=== PATIENT | female | born 1945 | race Caucasian/White ===

== ENCOUNTER 2017-09-19 15:03 | Inpatient (IN) | payer MEDICARE, BC ==
[2017-09-19] MEDS ORDERED: Ondansetron 4 MG Tab.DIS PO PRN (15:40)
[2017-09-19] MEDS ORDERED: Ondansetron 4 MG/2 ML SDV IV PRN (16:45)
[2017-09-19] MEDS: Sodium Chloride 0.9% 1,000 ML IV SCH (16:50)
[2017-09-19] MEDS: Azithromycin 500 MG in Sodium Chloride 0.9% 250 ML IV SCH (16:56)
[2017-09-19] MEDS: cefTRIAXone 1 GM Vial IVPUSH SCH (17:00)
[2017-09-19] MEDS: Acetaminophen 325 MG Tab PO PRN ×2 (17:13→21:20)
[2017-09-19] MEDS: Albuterol/Ipratropium 3.0-0.5 MG/3 ML Neb Soln NEB SCH ×2 (17:14→20:15)
[2017-09-19] MEDS: Enoxaparin 40 MG/0.4 ML Syringe SUBCUT SCH (17:40)
[2017-09-19] MEDS: Insulin Detemir 100 Units/ML 3 ML Pen SUBCUT SCH (17:41)
[2017-09-19] MEDS: Insulin Aspart 100 Units/ML 3 ML Pen SUBCUT SCH ×2 (17:43→20:18)
[2017-09-19] MEDS ORDERED: Non-Formulary Medication 1 Each (Sitagliptin Phos/Metformin Hcl [Janumet 50-1,000 Mg] 1 TA PO SCH (20:00)
[2017-09-19] MEDS: Oseltamivir 75 MG Cap PO SCH (20:03)
[2017-09-19] MEDS: Ibuprofen 200 MG Tab PO PRN (20:03)
[2017-09-20] MEDS: Acetaminophen 325 MG Tab PO PRN ×5 (01:38→23:31)
[2017-09-20] MEDS: Sodium Chloride 0.9% 1,000 ML IV SCH (07:19)
[2017-09-20] MEDS: Albuterol/Ipratropium 3.0-0.5 MG/3 ML Neb Soln NEB SCH ×4 (07:37→20:07)
[2017-09-20] MEDS: Sertraline 25 MG Tab PO SCH (07:38)
[2017-09-20] MEDS: DULoxetine 30 MG Cap PO SCH (07:38)
[2017-09-20] MEDS: Mirtazapine 15 MG Tab PO SCH (07:38)
[2017-09-20] MEDS: Oseltamivir 75 MG Cap PO SCH ×2 (07:39→20:07)
[2017-09-20] MEDS: Losartan 100 MG Tab PO SCH (07:42)
[2017-09-20] MEDS: Metoprolol Succinate 25 MG Tab.ER PO SCH (07:42)
[2017-09-20] MEDS: Insulin Detemir 100 Units/ML 3 ML Pen SUBCUT SCH ×2 (07:46→18:19)
[2017-09-20] MEDS: Insulin Aspart 100 Units/ML 3 ML Pen SUBCUT SCH ×5 (07:49→20:56)
--- NOTE | 2017-09-20 09:11 | PCM.PN ---
- General Info Date of Service: 09/13/17 Admission Dx/Problem (Free Text): Influenza Pneumonia Functional Status: Reports: Tolerating Diet. Denies: Pain Controlled (has generalized myalgias), Ambulating - Review of Systems General: Reports: Fever, Weakness, Fatigue, Malaise HEENT: Reports: Sinus Congestion, Rhinitis. Denies: Ear Pain, Sore Throat Pulmonary: Reports: Shortness of Breath, Cough, Wheezing. Denies: Sputum Cardiovascular: Denies: Chest Pain, Edema, Lightheadedness Gastrointestinal: Denies: Abdominal Pain, Nausea, Vomiting Genitourinary: Reports: No Symptoms Musculoskeletal: Reports: No Symptoms Skin: Reports: No Symptoms Neurological: Reports: No Symptoms - Patient Data Vitals - Most Recent: Last Vital Signs Temp 100.8 F H 09/20/17 08:00 Pulse 86 09/20/17 08:00 Resp 18 09/20/17 08:00 BP 130/74 09/20/17 08:00 Pulse Ox 100 09/20/17 08:00 Weight - Most Recent: 209 lb I&O - Last 24 Hours: Intake & Output 09/19/17 09/20/17 09/20/17 22:59 06:59 14:59 Intake Total 1000 Balance 1000 Lab Results Last 24 Hours: Laboratory Results - last 24 hr 09/19/17 09/19/17 09/19/17 Range/Units 16:00 16:03 16:45 WBC 6.0 (5.0-10.0) 10^3/uL RBC 3.49 L (4.00-5.50) 10^6/uL Hgb 10.3 L (12.0-16.0) g/dL Hct 30.3 L (37.0-47.0) % MCV 86.8 (82.0-94.0) fL MCH 29.5 (27.0-32.0) pg MCHC 34.0 (33.0-38.0) g/dL RDW Coeff of Francis 12.7 (11.0-15.0) % Plt Count 228 (150-400) 10^3/uL Neut % (Auto) 85.1 H (35-85) % Lymph % (Auto) 6.0 L (10-55) % [place] % (Auto) 7.5 (0-16) % Eos % (Auto) 1.2 (0-5) % Baso % (Auto) 0.2 (0-3) % Neut # (Auto) 5.11 (1.80-7.00) 10^3/uL Lymph # (Auto) 0.36 L (1.00-4.80) 10^3/uL [place] # (Auto) 0.45 (0.00-0.80) 10^3/uL Eos # (Auto) 0.07 (0.00-0.45) 10^3/uL Baso # (Auto) 0.01 10^3/uL Sodium 128 L (136-145) mEq/L Potassium 4.3 (3.5-5.0) mEq/L Chloride 96 L (98-106) mEq/L Carbon Dioxide 25 (21-32) mmol/L BUN 27 H (7-18) mg/dL Creatinine 1.5 H (0.6-1.0) mg/dL Est Cr Clr Drug Dosing 33.45 mL/min Estimated GFR (MDRD) 34 L (>=60) mL/min Glucose 347 H* D (75-99) mg/dL POC Glucose (75-105) mg/dl Calcium 9.2 (8.4-10.1) mg/dL Total Bilirubin 0.3 (0.0-1.0) mg/dL AST 13 L (15-37) U/L ALT 17 (12-78) U/L Alkaline Phosphatase 76 (46-116) U/L C-Reactive Protein 2.5 H (0.2-0.8) mg/dL Total Protein 7.4 (6.4-8.2) g/dL Albumin 3.2 L (3.4-5.0) g/dL Urine Color Yellow (YELLOW) Urine Appearance Clear (CLEAR) Urine pH 6.5 (4.5-8.0) Ur Specific [place] 1.020 (1.003-1.020) Urine Protein >=300 H (NEGATIVE) mg/dL Urine Glucose (UA) >=1000 H (NEGATIVE) mg/dL Urine Ketones Negative (NEGATIVE) mg/dL Urine Occult Blood Small H (NEGATIVE) Urine Nitrite Negative (NEGATIVE) Urine Bilirubin Negative (NEGATIVE) Urine Urobilinogen 0.2 (0.2-1.0) EU/dL Ur Leukocyte Esterase Negative (NEGATIVE) Urine RBC 5-10 H (0-5) /HPF Urine WBC 0-5 (0-5) /HPF Ur Epithelial Cells Few H (NOT SEEN) /HPF Ur Renal Epithelial Cell Few H (NOT SEEN) /HPF 09/19/17 09/19/17 09/20/17 Range/Units 16:56 20:18 07:44 WBC (5.0-10.0) 10^3/uL RBC (4.00-5.50) 10^6/uL Hgb (12.0-16.0) g/dL Hct (37.0-47.0) % MCV (82.0-94.0) fL MCH (27.0-32.0) pg MCHC (33.0-38.0) g/dL RDW Coeff of Francis (11.0-15.0) % Plt Count (150-400) 10^3/uL Neut % (Auto) (35-85) % Lymph % (Auto) (10-55) % [place] % (Auto) (0-16) % Eos % (Auto) (0-5) % Baso % (Auto) (0-3) % Neut # (Auto) (1.80-7.00) 10^3/uL Lymph # (Auto) (1.00-4.80) 10^3/uL [place] # (Auto) (0.00-0.80) 10^3/uL Eos # (Auto) (0.00-0.45) 10^3/uL Baso # (Auto) 10^3/uL Sodium (136-145) mEq/L Potassium (3.5-5.0) mEq/L Chloride (98-106) mEq/L Carbon Dioxide (21-32) mmol/L BUN (7-18) mg/dL Creatinine (0.6-1.0) mg/dL Est Cr Clr Drug Dosing mL/min Estimated GFR (MDRD) (>=60) mL/min Glucose (75-99) mg/dL POC Glucose 291 H 224 H 160 H (75-105) mg/dl Calcium (8.4-10.1) mg/dL Total Bilirubin (0.0-1.0) mg/dL AST (15-37) U/L ALT (12-78) U/L Alkaline Phosphatase (46-116) U/L C-Reactive Protein (0.2-0.8) mg/dL Total Protein (6.4-8.2) g/dL Albumin (3.4-5.0) g/dL Urine Color (YELLOW) Urine Appearance (CLEAR) Urine pH (4.5-8.0) Ur Specific [place] (1.003-1.020) Urine Protein (NEGATIVE) mg/dL Urine Glucose (UA) (NEGATIVE) mg/dL Urine Ketones (NEGATIVE) mg/dL Urine Occult Blood (NEGATIVE) Urine Nitrite (NEGATIVE) Urine Bilirubin (NEGATIVE) Urine Urobilinogen (0.2-1.0) EU/dL Ur Leukocyte Esterase (NEGATIVE) Urine RBC (0-5) /HPF Urine WBC (0-5) /HPF Ur Epithelial Cells (NOT SEEN) /HPF Ur Renal Epithelial Cell (NOT SEEN) /HPF Med Orders - Current: Current Medications Acetaminophen (Tylenol) 650 mg PO Q4H PRN PRN Reason: Pain (Mild 1-3)/fever Last Admin: 09/20/17 07:38 Dose: 650 mg Albuterol/Ipratropium (Duoneb 3.0-0.5 Mg/3 Ml) 3 ml NEB QIDRT [facility] Last Admin: 09/20/17 07:37 Dose: 3 ml Ceftriaxone Sodium (Rocephin) 1 gm IVPUSH Q24H [facility] Last Admin: 09/19/17 17:00 Dose: 1 gm Duloxetine HCl (Cymbalta) 60 mg PO DAILY [facility] Last Admin: 09/20/17 07:38 Dose: 60 mg Enoxaparin Sodium (Lovenox) 40 mg SUBCUT Q24H [facility] Last Admin: 09/19/17 17:40 Dose: 40 mg Sodium Chloride (Normal Saline) 1,000 mls @ 75 mls/hr IV ASDIRECTED [facility] Last Admin: 09/20/17 07:19 Dose: 75 mls/hr Azithromycin 500 mg/ Sodium (Chloride) 250 mls @ 250 mls/hr IV Q24H [facility] Last Admin: 09/19/17 16:56 Dose: 250 mls/hr Ibuprofen (Motrin) 400 mg PO Q6H PRN PRN Reason: Pain (mild 1-3) Last Admin: 09/19/17 20:03 Dose: 400 mg Insulin Aspart (Novolog) 0 unit SUBCUT WITHMEALSANDBED [facility] PRN Reason: Protocol Last Admin: 09/20/17 07:49 Dose: 1 units Insulin Detemir (Levemir) 20 unit SUBCUT BIDMEALS [facility] Last Admin: 09/20/17 07:46 Dose: 20 units Losartan Potassium (Cozaar) 100 mg PO DAILY [facility] Last Admin: 09/20/17 07:42 Dose: 100 mg Methylprednisolone Sodium Succinate (Solu-Medrol) 125 mg IVPUSH Q12H [facility] Metoprolol Succinate (Toprol Xl) 50 mg PO DAILY [facility] Last Admin: 09/20/17 07:42 Dose: 50 mg Mirtazapine (Remeron) 15 mg PO DAILY [facility] Last Admin: 09/20/17 07:38 Dose: 15 mg Ondansetron HCl (Zofran) 4 mg IV Q6H PRN PRN Reason: Nausea Last Admin: 09/19/17 17:07 Dose: 4 mg Oseltamivir Phosphate (Tamiflu) 75 mg PO BID [facility] Last Admin: 09/20/17 07:39 Dose: 75 mg Sertraline HCl (Zoloft) 50 mg PO DAILY [facility] Last Admin: 09/20/17 07:38 Dose: 50 mg Discontinued Medications Non-Formulary Medication (Sitagliptin Phos/Metformin Hcl [Janumet 50-1,000 Mg]) 1 tab PO BID [facility] Ondansetron HCl (Zofran Odt) 4 mg PO Q4H PRN PRN Reason: nausea, able to take PO - Exam General: Alert, Oriented HEENT: Mucous Membr. Moist/[place] Neck: Supple Lungs: Decreased Breath Sounds, Wheezing Cardiovascular: Regular Rate, Regular Rhythm GI/Abdominal Exam: Normal Bowel Sounds, Soft, Non-Tender Extremities: Normal Inspection, No Pedal Edema Skin: Warm, Dry Neurological: No New Focal Deficit - Problem List & Annotations (1) Influenza SNOMED Code(s): 2915962 Code(s): J11.1 - FLU DUE TO UNIDENTIFIED INFLUENZA VIRUS W OTH RESP MANIFEST Status: Acute Priority: High Current Visit: Yes - Problem List Review Problem List Initiated/Reviewed/Updated: Yes - My Orders Last 24 Hours: My Active Orders 09/20/17 09:15 methylPREDNISolone Sod Succ [Solu-MEDROL] 125 mg IVPUSH Q12H - Assessment Assessment:: Influenza Pneumonia - Plan Plan:: Patient continues to have ongoing myalgia, fevers. States not feeling much better today. Chest is tight and wheezy. Unable to test for influenza due to shortage on influenza test kits but is being treated for that as well as with antibiotics to cover both. She continues to spike a fever about every 4 hours as medications wear off. WBC on admit within normal range, CRP 2.5. Electrolytes stable. Will start IV Solu Medrol with expected rise in blood sugars to occur. Will monitor blood sugars QID. Continue antibiotics and nebs. IV fluids. Inappropriate for discharge.
[2017-09-20] MEDS: methylPREDNISolone Sodium Succinate 125 MG/2 ML SDV IVPUSH SCH ×2 (09:55→20:16)
[2017-09-20] MEDS: Azithromycin 500 MG in Sodium Chloride 0.9% 250 ML IV SCH (15:43)
[2017-09-20] MEDS: cefTRIAXone 1 GM Vial IVPUSH SCH (16:47)
[2017-09-20] MEDS: Enoxaparin 40 MG/0.4 ML Syringe SUBCUT SCH (16:47)
[2017-09-20] MEDS: [UNRECOGNIZED DRUG - OTHER] PO SCH (16:48)
[2017-09-20] MEDS: Ibuprofen 200 MG Tab PO PRN (16:55)
[2017-09-20] MEDS ORDERED: Insulin Aspart 100 Units/ML 3 ML Pen SUBCUT ONE ×2 (17:39→20:23)
[2017-09-20] MEDS ORDERED: Temazepam 15 MG Cap PO PRN (19:50)
[2017-09-20] MEDS ORDERED: Codeine/Promethazine 10-6.25 MG/5 ML Syrup 5 ML UD Cup PO PRN (19:51)
[2017-09-20] MEDS ORDERED: Sodium Chloride 0.9% 10 ML Syringe FLUSH PRN (20:53)
[2017-09-21] MEDS: Losartan 100 MG Tab PO SCH (07:58)
[2017-09-21] MEDS: Oseltamivir 75 MG Cap PO SCH ×2 (07:58→19:59)
[2017-09-21] MEDS: Albuterol/Ipratropium 3.0-0.5 MG/3 ML Neb Soln NEB SCH ×4 (07:59→20:51)
[2017-09-21] MEDS: Sertraline 25 MG Tab PO SCH (07:59)
[2017-09-21] MEDS: DULoxetine 30 MG Cap PO SCH (07:59)
[2017-09-21] MEDS: Metoprolol Succinate 25 MG Tab.ER PO SCH (07:59)
[2017-09-21] MEDS: Mirtazapine 15 MG Tab PO SCH (07:59)
[2017-09-21] MEDS: [UNRECOGNIZED DRUG - OTHER] PO SCH ×2 (08:02→16:59)
[2017-09-21] MEDS: Insulin Detemir 100 Units/ML 3 ML Pen SUBCUT SCH ×2 (08:06→17:42)
[2017-09-21] MEDS: Insulin Aspart 100 Units/ML 3 ML Pen SUBCUT SCH ×4 (08:08→20:56)
[2017-09-21] MEDS: methylPREDNISolone Sodium Succinate 125 MG/2 ML SDV IVPUSH SCH ×3 (10:32→20:59)
[2017-09-21] MEDS: Acetaminophen 325 MG Tab PO PRN (16:56)
[2017-09-21] MEDS: cefTRIAXone 1 GM Vial IVPUSH SCH (16:56)
[2017-09-21] MEDS: Enoxaparin 40 MG/0.4 ML Syringe SUBCUT SCH (16:56)
--- NOTE | 2017-09-21 22:01 | PCM.PN ---
- General Info Date of Service: 09/21/17 Admission Dx/Problem (Free Text): Influenza Pneumonia Functional Status: Reports: Pain Controlled, Tolerating Diet, Ambulating ( ambulating short distances in her room, feels more steady doing so today) - Review of Systems General: Reports: Fever, Weakness, Fatigue HEENT: Reports: Sinus Congestion, Rhinitis Pulmonary: Reports: Shortness of Breath, Cough, Sputum, Wheezing Cardiovascular: Reports: No Symptoms Gastrointestinal: Reports: No Symptoms Genitourinary: Reports: No Symptoms Musculoskeletal: Reports: No Symptoms Skin: Reports: No Symptoms Neurological: Reports: No Symptoms - Patient Data Vitals - Most Recent: Last Vital Signs Temp 99.2 F 09/21/17 15:36 Pulse 79 09/21/17 15:36 Resp 16 09/21/17 15:36 BP 124/71 09/21/17 15:36 Pulse Ox 92 L 09/21/17 15:36 Weight - Most Recent: 209 lb Lab Results Last 24 Hours: Laboratory Results - last 24 hr 09/21/17 09/21/17 09/21/17 Range/Units 08:06 11:54 17:21 POC Glucose 400 H 371 H 375 H (75-105) mg/dl 09/21/17 Range/Units 20:57 POC Glucose 363 H (75-105) mg/dl Jan Results Last 24 Hours: Microbiology 09/19/17 16:08 Aerobic Blood Culture - Preliminary Blood - Venous - Lab Draw NO GROWTH AFTER 2 DAYS Anaerobic Blood Culture - Preliminary NO GROWTH AFTER 2 DAYS 09/19/17 16:03 Aerobic Blood Culture - Preliminary Blood - Venous NO GROWTH AFTER 2 DAYS Anaerobic Blood Culture - Preliminary NO GROWTH AFTER 2 DAYS 09/19/17 12:56 Gram Stain - Final Sputum - Expectorated Sputum Culture - Final Med Orders - Current: Current Medications Acetaminophen (Tylenol) 650 mg PO Q4H PRN PRN Reason: Pain (Mild 1-3)/fever Last Admin: 09/21/17 16:56 Dose: 650 mg Albuterol/Ipratropium (Duoneb 3.0-0.5 Mg/3 Ml) 3 ml NEB QIDRT [facility] Last Admin: 09/21/17 20:51 Dose: 3 ml Ceftriaxone Sodium (Rocephin) 1 gm IVPUSH Q24H [facility] Last Admin: 09/21/17 16:56 Dose: 1 gm Duloxetine HCl (Cymbalta) 60 mg PO DAILY [facility] Last Admin: 09/21/17 07:59 Dose: 60 mg Enoxaparin Sodium (Lovenox) 40 mg SUBCUT Q24H [facility] Last Admin: 09/21/17 16:56 Dose: 40 mg Ibuprofen (Motrin) 400 mg PO Q6H PRN PRN Reason: Pain (mild 1-3) Last Admin: 09/20/17 16:55 Dose: 400 mg Insulin Aspart (Novolog) 0 unit SUBCUT WITHMEALSANDBED [facility] PRN Reason: Protocol Last Admin: 09/21/17 20:56 Dose: 15 units Insulin Detemir (Levemir) 20 unit SUBCUT BIDMEALS [facility] Last Admin: 09/21/17 17:42 Dose: 20 units Losartan Potassium (Cozaar) 100 mg PO DAILY [facility] Last Admin: 09/21/17 07:58 Dose: 100 mg Methylprednisolone Sodium Succinate (Solu-Medrol) 125 mg IVPUSH BID@0800,2000 [facility] Last Admin: 09/21/17 20:59 Dose: 125 mg Metoprolol Succinate (Toprol Xl) 50 mg PO DAILY [facility] Last Admin: 09/21/17 07:59 Dose: 50 mg Mirtazapine (Remeron) 15 mg PO DAILY [facility] Last Admin: 09/21/17 07:59 Dose: 15 mg Ondansetron HCl (Zofran) 4 mg IV Q6H PRN PRN Reason: Nausea Last Admin: 09/19/17 17:07 Dose: 4 mg Oseltamivir Phosphate (Tamiflu) 75 mg PO BID [facility] Last Admin: 09/21/17 19:59 Dose: 75 mg [place] Mg (Tab Ptom) 1 each PO BID@0800,1600 [facility] Last Admin: 09/21/17 16:59 Dose: 1 each Promethazine HCl/Codeine (Phenergan With Codeine) 5 - 10 ml PO Q6H PRN PRN Reason: Cough Sertraline HCl (Zoloft) 50 mg PO DAILY [facility] Last Admin: 09/21/17 07:59 Dose: 50 mg Sodium Chloride (Saline Flush) 10 ml FLUSH ASDIRECTED PRN PRN Reason: Keep Vein Open Temazepam (Restoril) 15 mg PO BEDTIME PRN PRN Reason: Insomnia Discontinued Medications Sodium Chloride (Normal Saline) 1,000 mls @ 75 mls/hr IV ASDIRECTED [facility] Last Admin: 09/20/17 07:19 Dose: 75 mls/hr Azithromycin 500 mg/ Sodium (Chloride) 250 mls @ 250 mls/hr IV Q24H [facility] Last Admin: 09/20/17 15:43 Dose: 250 mls/hr Insulin Aspart (Novolog) 0 unit SUBCUT WITHMEALSANDBED [facility] PRN Reason: Protocol Last Admin: 09/20/17 17:39 Dose: Not Given Insulin Aspart (Novolog) 10 unit SUBCUT ONETIME ONE Stop: 09/20/17 17:40 Last Admin: 09/20/17 18:21 Dose: 10 units Insulin Aspart (Novolog) 15 unit SUBCUT ONETIME ONE Stop: 09/20/17 20:24 Last Admin: 09/20/17 20:51 Dose: 15 units Methylprednisolone Sodium Succinate (Solu-Medrol) 125 mg IVPUSH Q12H [facility] Last Admin: 09/21/17 10:39 Dose: Not Given Non-Formulary Medication (Sitagliptin Phos/Metformin Hcl [Janumet 50-1,000 Mg]) 1 tab PO BID [facility] Ondansetron HCl (Zofran Odt) 4 mg PO Q4H PRN PRN Reason: nausea, able to take PO - Exam General: Alert, Oriented HEENT: Mucous Membr. Moist/[place] Neck: Supple Lungs: Normal Respiratory Effort, Decreased Breath Sounds, Crackles (LLL) Cardiovascular: Regular Rate, Regular Rhythm GI/Abdominal Exam: Normal Bowel Sounds, Soft, Non-Tender Extremities: Normal Inspection, No Pedal Edema Skin: Warm, Dry Neurological: No New Focal Deficit - Problem List & Annotations (1) Influenza SNOMED Code(s): 7297071 Code(s): J11.1 - FLU DUE TO UNIDENTIFIED INFLUENZA VIRUS W OTH RESP MANIFEST Status: Acute Priority: High Current Visit: Yes - Problem List Review Problem List Initiated/Reviewed/Updated: Yes - My Orders Last 24 Hours: My Active Orders 09/21/17 10:30 methylPREDNISolone Sod Succ [Solu-MEDROL] 125 mg IVPUSH BID@0800,2000 - Assessment Assessment:: Influenza Pneumonia - Plan Plan:: Patient continues to have ongoing myalgia, fevers. States not feeling much better today. Chest is tight and wheezy. Unable to test for influenza due to shortage on influenza test kits but is being treated for that as well as with antibiotics to cover both. She continues to spike a fever about every 4 hours as medications wear off. WBC on admit within normal range, CRP 2.5. Electrolytes stable. Will start IV Solu Medrol with expected rise in blood sugars to occur. Will monitor blood sugars QID. Continue antibiotics and nebs. IV fluids. Inappropriate for discharge. 09-21-2017 Patient doing better today. States did sleep well last night, feels her breathing is much more at ease today. She does still have a tight cough but less frequent. Fevers have broke, down to low grade at 99 last night but afebrile this am. She states she is moving about in her room this am and legs are stronger than yesterday. Lung sounds are improved, less wheezing, crackles in the left base. Oxygen sats good. Will stop her steroids due to improvement and the increases in blood sugars. Covering with novolog. Continue Rocephin. Stopped Zithromax. Continue tamiflu. Probable discharge tomorrow.
[2017-09-22] MEDS: Acetaminophen 325 MG Tab PO PRN (03:08)
[2017-09-22] MEDS: Albuterol/Ipratropium 3.0-0.5 MG/3 ML Neb Soln NEB SCH (07:51)
[2017-09-22] MEDS: DULoxetine 30 MG Cap PO SCH (07:52)
[2017-09-22] MEDS: Sertraline 25 MG Tab PO SCH (07:52)
[2017-09-22] MEDS: Losartan 100 MG Tab PO SCH (07:52)
[2017-09-22] MEDS: Oseltamivir 75 MG Cap PO SCH (07:52)
[2017-09-22] MEDS: Metoprolol Succinate 25 MG Tab.ER PO SCH (07:52)
[2017-09-22] MEDS: Mirtazapine 15 MG Tab PO SCH (07:52)
[2017-09-22] MEDS: [UNRECOGNIZED DRUG - OTHER] PO SCH (07:53)
[2017-09-22] MEDS: Insulin Detemir 100 Units/ML 3 ML Pen SUBCUT SCH (07:55)
[2017-09-22] MEDS: Insulin Aspart 100 Units/ML 3 ML Pen SUBCUT SCH (07:56)
[2017-09-22] MEDS: methylPREDNISolone Sodium Succinate 125 MG/2 ML SDV IVPUSH SCH (08:13)
--- NOTE | 2017-09-24 21:43 | PCM.DCSUM1 ---
Discharge Summary - Hospital Course Free Text/Narrative:: Patient presented to clinic to see Dr. Melo with a 3 day history of fever/chills , weakness and headache. Had felt short of breath. Was noted to have bibasilar rales/wheezing in clinic. Admitted for presumptive pneumonia. Further work on admit did show a WBC of 6.0, CRP of 2.5. Chest xray clear. [place] possibly associated with influenza but unable to test for due to shortage of influenza testing kits. Covered with IV fluids, antibiotics, nebulizer treatments and covered with Tamiflu. - Discharge Data Discharge Date: 09/22/17 Discharge Disposition: Home, Self-Care 01 Condition: Good - Discharge Diagnosis/Problem(s) (1) Influenza SNOMED Code(s): 4315160 ICD Code: J11.1 - FLU DUE TO UNIDENTIFIED INFLUENZA VIRUS W OTH RESP MANIFEST Status: Acute Priority: High - Patient Summary/Data Complications: none Consults: Consultations 09/20/17 20:54 Consult to Physical Therapy [PT Evaluation and Treatment] [CONS] Routine Hospital Course: Patient had slow improvement of overall status. Did have considerable myalgias on day 1, which have improved. Fever for the first 36 hours but now afebrile. Appetite has improved. Lung sounds show significant improvement with no further wheezing, crackles improved. Blood cultures, sputum culture negative. Patient was very weak, did have difficulty getting out of bed on her own initially, PT worked with her, now ambulating well in halls. Overall feeling much improved by discharge. - Patient Instructions Diet: Usual Diet as Tolerated Activity: As Tolerated - Discharge Plan Prescriptions/Med Rec: Albuterol/Ipratropium [DuoNeb 3.0-0.5 MG/3 ML] 3 ml NEB QID PRN #28 neb PRN Reason: Wheezing Cefuroxime Axetil [Cefuroxime] 250 mg PO BID #20 tablet Home Medications: Home Meds DULoxetine [Cymbalta] 60 mg PO DAILY 09/19/17 [History] Furosemide 20 mg PO BID 09/19/17 [History] Gemfibrozil 600 mg PO BID 09/19/17 [History] Insulin Glargine,Hum.Rec.Anlog [Basaglar Kwikpen U-100] 40 unit SQ BEDTIME 09/19 [History] Losartan Potassium 100 mg PO DAILY 09/19/17 [History] Magnesium Oxide/Mag AA Chelate [Magnesium] 300 mg PO DAILY 09/19/17 [History] Metoprolol Succinate [Toprol XL 50mg] 50 mg PO DAILY 09/19/17 [History] Mirtazapine 15 mg PO DAILY 09/19/17 [History] Nitrofurantoin Macrocrystal [Macrodantin] 50 mg PO DAILY 09/19/17 [History] Sertraline HCl 50 mg PO DAILY 09/19/17 [History] Simvastatin 40 mg PO BEDTIME 09/19/17 [History] sitaGLIPtin Phos/Metformin HCl [Janumet 50-1,000 MG] 1 tab PO BID 09/19/17 [ History] Albuterol/Ipratropium [DuoNeb 3.0-0.5 MG/3 ML] 3 ml NEB QID PRN #28 neb [Rx] Cefuroxime Axetil [Cefuroxime] 250 mg PO BID #20 tablet 09/22/17 [Rx] Patient Handouts: Influenza, Adult, Community-Acquired Pneumonia, Adult Referrals: Pillo Melo MD [ED Physician] - (Follow up with Dr. Melo in 10 days ) - Discharge Summary/Plan Comment DC Time >30 min.: No Discharge Summary/Plan Comment: Discharge home on Ceftin. Completed course of Tamiflu during stay. Duoenbs as needed. Follow up with Dr. Melo - General Info Date of Service: 09/22/17 Admission Dx/Problem (Free Text: Influenza Pneumonia Functional Status: Reports: Pain Controlled, Tolerating Diet, Ambulating - Review of Systems General: Reports: Weakness, Fatigue, Malaise. Denies: Fever HEENT: Reports: Rhinitis. Denies: Sore Throat Pulmonary: Reports: Cough. Denies: Shortness of Breath, Wheezing Cardiovascular: Denies: Chest Pain, Edema, Lightheadedness Gastrointestinal: Denies: Abdominal Pain, Nausea, Vomiting Genitourinary: Reports: No Symptoms Musculoskeletal: Reports: No Symptoms Skin: Reports: No Symptoms Neurological: Reports: No Symptoms - Patient Data Vitals - Most Recent: Last Vital Signs Temp 98.4 F 09/22/17 07:31 Pulse 73 09/22/17 07:52 Resp 20 09/22/17 07:31 BP 149/91 H 09/22/17 07:52 Pulse Ox 94 L 09/22/17 07:31 Weight - Most Recent: 209 lb GOGO Results - Last 24 hrs: Microbiology 09/19/17 16:08 Aerobic Blood Culture - Final Blood - Venous - Lab Draw NO GROWTH AFTER 5 DAYS Anaerobic Blood Culture - Final NO GROWTH AFTER 5 DAYS 09/19/17 16:03 Aerobic Blood Culture - Final Blood - Venous NO GROWTH AFTER 5 DAYS Anaerobic Blood Culture - Final NO GROWTH AFTER 5 DAYS Med Orders - Current: Current Medications Discontinued Medications Acetaminophen (Tylenol) 650 mg PO Q4H PRN PRN Reason: Pain (Mild 1-3)/fever Last Admin: 09/22/17 03:08 Dose: 650 mg Albuterol/Ipratropium (Duoneb 3.0-0.5 Mg/3 Ml) 3 ml NEB QIDRT [facility] Last Admin: 09/22/17 07:51 Dose: 3 ml Ceftriaxone Sodium (Rocephin) 1 gm IVPUSH Q24H [facility] Last Admin: 09/21/17 16:56 Dose: 1 gm Duloxetine HCl (Cymbalta) 60 mg PO DAILY [facility] Last Admin: 09/22/17 07:52 Dose: 60 mg Enoxaparin Sodium (Lovenox) 40 mg SUBCUT Q24H [facility] Last Admin: 09/21/17 16:56 Dose: 40 mg Sodium Chloride (Normal Saline) 1,000 mls @ 75 mls/hr IV ASDIRECTED [facility] Last Admin: 09/20/17 07:19 Dose: 75 mls/hr Azithromycin 500 mg/ Sodium (Chloride) 250 mls @ 250 mls/hr IV Q24H [facility] Last Admin: 09/20/17 15:43 Dose: 250 mls/hr Ibuprofen (Motrin) 400 mg PO Q6H PRN PRN Reason: Pain (mild 1-3) Last Admin: 09/20/17 16:55 Dose: 400 mg Insulin Aspart (Novolog) 0 unit SUBCUT WITHMEALSANDBED [facility] PRN Reason: Protocol Last Admin: 09/20/17 17:39 Dose: Not Given Insulin Aspart (Novolog) 0 unit SUBCUT WITHMEALSANDBED [facility] PRN Reason: Protocol Last Admin: 09/22/17 07:56 Dose: 12 units Insulin Aspart (Novolog) 10 unit SUBCUT ONETIME ONE Stop: 09/20/17 17:40 Last Admin: 09/20/17 18:21 Dose: 10 units Insulin Aspart (Novolog) 15 unit SUBCUT ONETIME ONE Stop: 09/20/17 20:24 Last Admin: 09/20/17 20:51 Dose: 15 units Insulin Detemir (Levemir) 20 unit SUBCUT BIDMEALS [facility] Last Admin: 09/22/17 07:55 Dose: 20 units Losartan Potassium (Cozaar) 100 mg PO DAILY [facility] Last Admin: 09/22/17 07:52 Dose: 100 mg Methylprednisolone Sodium Succinate (Solu-Medrol) 125 mg IVPUSH Q12H [facility] Last Admin: 09/21/17 10:39 Dose: Not Given Methylprednisolone Sodium Succinate (Solu-Medrol) 125 mg IVPUSH BID@0800,2000 [facility] Last Admin: 09/22/17 08:13 Dose: Not Given Metoprolol Succinate (Toprol Xl) 50 mg PO DAILY [facility] Last Admin: 09/22/17 07:52 Dose: 50 mg Mirtazapine (Remeron) 15 mg PO DAILY [facility] Last Admin: 09/22/17 07:52 Dose: 15 mg Non-Formulary Medication (Sitagliptin Phos/Metformin Hcl [Janumet 50-1,000 Mg]) 1 tab PO BID [facility] Ondansetron HCl (Zofran Odt) 4 mg PO Q4H PRN PRN Reason: nausea, able to take PO Ondansetron HCl (Zofran) 4 mg IV Q6H PRN PRN Reason: Nausea Last Admin: 09/19/17 17:07 Dose: 4 mg Oseltamivir Phosphate (Tamiflu) 75 mg PO BID [facility] Last Admin: 09/22/17 07:52 Dose: 75 mg [place] Mg (Tab Ptom) 1 each PO BID@0800,1600 [facility] Last Admin: 09/22/17 07:53 Dose: 1 each Promethazine HCl/Codeine (Phenergan With Codeine) 5 - 10 ml PO Q6H PRN PRN Reason: Cough Sertraline HCl (Zoloft) 50 mg PO DAILY [facility] Last Admin: 09/22/17 07:52 Dose: 50 mg Sodium Chloride (Saline Flush) 10 ml FLUSH ASDIRECTED PRN PRN Reason: Keep Vein Open Temazepam (Restoril) 15 mg PO BEDTIME PRN PRN Reason: Insomnia - Exam General: Reports: Alert, Oriented HEENT: Reports: Mucous Membr. Moist/[place] Neck: Reports: Supple Lungs: Reports: Clear to Auscultation, Normal Respiratory Effort Cardiovascular: Reports: Regular Rate, Regular Rhythm GI/Abdominal Exam: Normal Bowel Sounds, Soft, Non-Tender Extremities: Normal Inspection, No Pedal Edema Skin: Reports: Warm, Dry Neurological: Reports: No New Focal Deficit *Q Meaningful Use (DIS) - VTE *Q VTE Criteria *Q: - Stroke *Q Stroke Criteria *Q: - AMI *Q AMI Criteria *Q:
== END 2017-09-22 10:00 | disposition home or self-care (01) | DRG 153 ==
LOC: UNDOADMIN 15:03 → CC.MS 15:03 → UNDOADMIN 15:40 → CC.MS 15:40
PROVIDERS: ADMIT Family Medicine; ATTEND Family Medicine
DX: J11.1 Influenza due to unidentified influenza virus with other respiratory manifestations (principal); J18.9 Pneumonia, unspecified organism; J44.9 Chronic obstructive pulmonary disease, unspecified; F32.9 Major depressive disorder, single episode, unspecified; I10 Essential (primary) hypertension; E11.9 Type 2 diabetes mellitus without complications; H81.09 Meniere's disease, unspecified ear; E78.00 Pure hypercholesterolemia, unspecified; Z79.899 Other long term (current) drug therapy
CPT/HCPCS: 36415; 71046; 80053; 81001; 82962; 85025; 86140; 87040; 87205; 94640; 97110-GP; 97161-GP; A9270-GY; J0456; J0696; J1650; J1815-GY; J2405; J2930; J7030; J7050

== ENCOUNTER 2018-05-01 14:03 | Inpatient (IN) | payer MEDICARE, BC ==
[2018-05-01] MEDS ORDERED: Sodium Chloride 0.9% 10 ML Syringe FLUSH PRN (14:10)
[2018-05-01 15:04] LABS: BICARBONATE,ARTERIAL 19.4 mm/L (22.0-26.0); O2 SATURATION ARTERIAL 90 % (95-98); PCO2 ARTERIAL 34 mm/Hg0 (35-45); PO2 ARTERIAL 61 mm/Hg (80-100)
[2018-05-01 15:05] LABS: O2 DELIVERY DEVICE NASAL CANNULA
[2018-05-01 15:33] LABS: CHLORIDE,CL 106 mEq/L (98-106); SODIUM,NA 141 mEq/L (136-145)
[2018-05-01] MEDS: Albuterol/Ipratropium 3.0-0.5 MG/3 ML Neb Soln NEB SCH ×2 (15:35→20:21)
[2018-05-01] MEDS: Pantoprazole 40 MG Vial IVPUSH SCH (15:35)
[2018-05-01] MEDS ORDERED: Enoxaparin 30 MG/0.3 ML Syringe SUBCUT SCH (15:45)
[2018-05-01] MEDS ORDERED: Enoxaparin 80 MG/0.8 ML Syringe SUBCUT SCH (16:00)
[2018-05-01] MEDS ORDERED: Albuterol/Ipratropium 3.0-0.5 MG/3 ML Neb Soln NEB PRN (16:34)
[2018-05-01] MEDS: Insulin Aspart 100 Units/ML 3 ML Pen SUBCUT SCH ×2 (17:43→20:24)
[2018-05-01] MEDS ORDERED: Furosemide 40 MG/4 ML VIAL IVPUSH ONE (17:46)
[2018-05-01] MEDS: METFORMIN HCL PO SCH ×2 (17:54→18:00)
[2018-05-01] MEDS: SITAGLIPTIN PHOS PO SCH ×2 (17:54→18:00)
[2018-05-01] MEDS: Nitroglycerin 2% Oint 1 GM UD Packet TOP SCH (18:00)
[2018-05-01] MEDS: Enoxaparin 60 MG/0.6 ML Syringe SUBCUT SCH (20:19)
[2018-05-01] MEDS: Insulin Detemir 100 Units/ML 3 ML Pen SUBCUT SCH (20:30)
[2018-05-02] MEDS: Nitroglycerin 2% Oint 1 GM UD Packet TOP SCH ×3 (01:29→17:05)
[2018-05-02] MEDS ORDERED: Metoprolol Succinate 25 MG Tab.ER PO SCH (08:00)
[2018-05-02] MEDS: Albuterol/Ipratropium 3.0-0.5 MG/3 ML Neb Soln NEB SCH ×4 (08:14→19:37)
[2018-05-02] MEDS: Sertraline 25 MG Tab PO SCH (08:14)
[2018-05-02] MEDS: Mirtazapine 15 MG Tab PO SCH (08:15)
[2018-05-02] MEDS: amLODIPine 2.5 MG Tab PO SCH (08:15)
[2018-05-02] MEDS: Losartan 100 MG Tab PO SCH (08:15)
[2018-05-02] MEDS: Insulin Aspart 100 Units/ML 3 ML Pen SUBCUT SCH ×4 (08:16→20:46)
[2018-05-02] MEDS: DULoxetine 30 MG Cap PO SCH (08:16)
[2018-05-02] MEDS: Furosemide 40 MG/4 ML VIAL IVPUSH SCH ×2 (09:43→17:05)
[2018-05-02] MEDS: Enoxaparin 60 MG/0.6 ML Syringe SUBCUT SCH ×2 (09:43→20:45)
[2018-05-02] MEDS: Pantoprazole 40 MG Vial IVPUSH SCH (11:38)
--- NOTE | 2018-05-02 15:39 | PCM.PN ---
- General Info Date of Service: 05/02/18 Admission Dx/Problem (Free Text): Shortness of Breath COPD Exacerbation Rule out DVT/PE Functional Status: Reports: Pain Controlled, Tolerating Diet. Denies: Ambulating - Review of Systems General: Reports: Weakness, Fatigue. Denies: Fever HEENT: Reports: Rhinitis. Denies: Ear Pain, Sore Throat Pulmonary: Reports: Shortness of Breath, Cough, Wheezing Cardiovascular: Denies: Chest Pain, Edema, Lightheadedness Gastrointestinal: Denies: Abdominal Pain, Nausea, Vomiting Genitourinary: Reports: No Symptoms Musculoskeletal: Reports: No Symptoms Skin: Reports: No Symptoms Neurological: Reports: Weakness - Patient Data Vitals - Most Recent: Last Vital Signs Temp 97.3 F 05/02/18 12:00 Pulse 60 05/02/18 12:00 Resp 20 05/02/18 12:00 BP 170/90 H 05/02/18 12:00 Pulse Ox 93 L 05/02/18 12:00 Weight - Most Recent: 216 lb 4.16 oz I&O - Last 24 Hours: Intake & Output 05/02/18 05/02/18 05/02/18 06:59 14:59 22:59 Intake Total 1090 Output Total 800 1400 Balance 290 -1400 Lab Results Last 24 Hours: Laboratory Results - last 24 hr 05/01/18 05/01/18 05/01/18 Range/Units 14:35 17:00 17:11 Sodium 141 (136-145) mEq/L Potassium 4.3 (3.5-5.0) mEq/L Chloride 106 (98-106) mEq/L Carbon Dioxide 22 (21-32) mmol/L BUN 27 H (7-18) mg/dL Creatinine 1.6 H (0.6-1.0) mg/dL Est Cr Clr Drug Dosing 30.91 mL/min Estimated GFR (MDRD) 32 L (>=60) mL/min Glucose 63 L D (75-99) mg/dL POC Glucose 79 (75-105) mg/dl Calcium 8.9 (8.4-10.1) mg/dL Total Bilirubin 0.3 (0.0-1.0) mg/dL AST 12 L (15-37) U/L ALT 13 (12-78) U/L Alkaline Phosphatase 92 (46-116) U/L Troponin I < 0.017 (0.00-0.06) ng/mL C-Reactive Protein 6.3 H (0.2-0.8) mg/dL NT-Pro-B Natriuret Pep 1903 H (0-1000) pg/mL Total Protein 7.3 (6.4-8.2) g/dL Albumin 2.6 L (3.4-5.0) g/dL Urine Color Light yellow (YELLOW) Urine Appearance Clear (CLEAR) Urine pH 6.0 (4.5-8.0) Ur Specific [place] 1.025 H (1.003-1.020) Urine Protein >=300 H (NEGATIVE) mg/dL Urine Glucose (UA) 100 H (NEGATIVE) mg/dL Urine Ketones Negative (NEGATIVE) mg/dL Urine Occult Blood Small H (NEGATIVE) Urine Nitrite Negative (NEGATIVE) Urine Bilirubin Negative (NEGATIVE) Urine Urobilinogen 0.2 (0.2-1.0) EU/dL Ur Leukocyte Esterase Negative (NEGATIVE) Urine RBC 0-5 (0-5) /HPF Urine WBC Not seen (0-5) /HPF Ur Epithelial Cells Few H (NOT SEEN) /HPF Hyaline Casts Occasional H (NOT SEEN) /LPF 05/01/18 05/02/18 05/02/18 Range/Units 20:23 07:11 07:20 Sodium 141 (136-145) mEq/L Potassium 4.5 (3.5-5.0) mEq/L Chloride 108 H (98-106) mEq/L Carbon Dioxide 25 (21-32) mmol/L BUN 29 H (7-18) mg/dL Creatinine 1.6 H (0.6-1.0) mg/dL Est Cr Clr Drug Dosing 30.91 mL/min Estimated GFR (MDRD) 32 L (>=60) mL/min Glucose 98 D (75-99) mg/dL POC Glucose 141 H 84 (75-105) mg/dl Calcium 8.4 (8.4-10.1) mg/dL Total Bilirubin (0.0-1.0) mg/dL AST (15-37) U/L ALT (12-78) U/L Alkaline Phosphatase (46-116) U/L Troponin I (0.00-0.06) ng/mL C-Reactive Protein (0.2-0.8) mg/dL NT-Pro-B Natriuret Pep (0-1000) pg/mL Total Protein (6.4-8.2) g/dL Albumin (3.4-5.0) g/dL Urine Color (YELLOW) Urine Appearance (CLEAR) Urine pH (4.5-8.0) Ur Specific [place] (1.003-1.020) Urine Protein (NEGATIVE) mg/dL Urine Glucose (UA) (NEGATIVE) mg/dL Urine Ketones (NEGATIVE) mg/dL Urine Occult Blood (NEGATIVE) Urine Nitrite (NEGATIVE) Urine Bilirubin (NEGATIVE) Urine Urobilinogen (0.2-1.0) EU/dL Ur Leukocyte Esterase (NEGATIVE) Urine RBC (0-5) /HPF Urine WBC (0-5) /HPF Ur Epithelial Cells (NOT SEEN) /HPF Hyaline Casts (NOT SEEN) /LPF 05/02/18 Range/Units 11:44 Sodium (136-145) mEq/L Potassium (3.5-5.0) mEq/L Chloride (98-106) mEq/L Carbon Dioxide (21-32) mmol/L BUN (7-18) mg/dL Creatinine (0.6-1.0) mg/dL Est Cr Clr Drug Dosing mL/min Estimated GFR (MDRD) (>=60) mL/min Glucose (75-99) mg/dL POC Glucose 133 H (75-105) mg/dl Calcium (8.4-10.1) mg/dL Total Bilirubin (0.0-1.0) mg/dL AST (15-37) U/L ALT (12-78) U/L Alkaline Phosphatase (46-116) U/L Troponin I (0.00-0.06) ng/mL C-Reactive Protein (0.2-0.8) mg/dL NT-Pro-B Natriuret Pep (0-1000) pg/mL Total Protein (6.4-8.2) g/dL Albumin (3.4-5.0) g/dL Urine Color (YELLOW) Urine Appearance (CLEAR) Urine pH (4.5-8.0) Ur Specific [place] (1.003-1.020) Urine Protein (NEGATIVE) mg/dL Urine Glucose (UA) (NEGATIVE) mg/dL Urine Ketones (NEGATIVE) mg/dL Urine Occult Blood (NEGATIVE) Urine Nitrite (NEGATIVE) Urine Bilirubin (NEGATIVE) Urine Urobilinogen (0.2-1.0) EU/dL Ur Leukocyte Esterase (NEGATIVE) Urine RBC (0-5) /HPF Urine WBC (0-5) /HPF Ur Epithelial Cells (NOT SEEN) /HPF Hyaline Casts (NOT SEEN) /LPF Jan Results Last 24 Hours: Microbiology 05/01/18 14:40 Aerobic Blood Culture - Preliminary Blood - Venous - Lab Draw NO GROWTH AFTER 1 DAY Anaerobic Blood Culture - Preliminary NO GROWTH AFTER 1 DAY 05/01/18 14:35 Aerobic Blood Culture - Preliminary Blood - Venous NO GROWTH AFTER 1 DAY Anaerobic Blood Culture - Preliminary NO GROWTH AFTER 1 DAY Med Orders - Current: Current Medications Albuterol/Ipratropium (Duoneb 3.0-0.5 Mg/3 Ml) 3 ml NEB QIDRT [facility] Last Admin: 05/02/18 11:39 Dose: 3 ml Albuterol/Ipratropium (Duoneb 3.0-0.5 Mg/3 Ml) 3 ml NEB QID PRN PRN Reason: Wheezing Amlodipine Besylate (Norvasc) 2.5 mg PO DAILY [facility] Last Admin: 05/02/18 08:15 Dose: 2.5 mg Duloxetine HCl (Cymbalta) 60 mg PO DAILY [facility] Last Admin: 05/02/18 08:16 Dose: 60 mg Enoxaparin Sodium (Lovenox) 60 mg SUBCUT 0800,2000 [facility] Last Admin: 05/02/18 09:43 Dose: 60 mg Furosemide (Lasix) 40 mg IVPUSH 0800,1600 [facility] Last Admin: 05/02/18 09:43 Dose: 40 mg Gabapentin (Neurontin) 600 mg PO BEDTIME [facility] Insulin Aspart (Novolog) 0 unit SUBCUT WITHMEALSANDBED [facility]; Protocol Last Admin: 05/02/18 11:50 Dose: Not Given Insulin Detemir (Levemir) 50 unit SUBCUT BEDTIME [facility] Last Admin: 05/01/18 20:30 Dose: 50 units Losartan Potassium (Cozaar) 100 mg PO DAILY [facility] Last Admin: 05/02/18 08:15 Dose: 100 mg Metoprolol Succinate (Toprol Xl) 50 mg PO DAILY [facility] Last Admin: 05/02/18 08:15 Dose: 50 mg Mirtazapine (Remeron) 15 mg PO DAILY [facility] Last Admin: 05/02/18 08:15 Dose: 15 mg Nitroglycerin (Nitro-Bid 2%) 0.5 gm TOP Q8H [facility] Last Admin: 05/02/18 09:43 Dose: 0.5 gm PtomSitagliptin Phos/Metformin Hcl [ Janumet 50-1,000 Mg] 1 each PO BIDMEALS [facility] Last Admin: 05/01/18 18:00 Dose: Not Given Pantoprazole Sodium (Protonix Iv) 40 mg IVPUSH DAILY@1200 [facility] Last Admin: 05/02/18 11:38 Dose: 40 mg Sertraline HCl (Zoloft) 50 mg PO DAILY [facility] Last Admin: 05/02/18 08:14 Dose: 50 mg Sodium Chloride (Saline Flush) 10 ml FLUSH ASDIRECTED PRN PRN Reason: Keep Vein Open Discontinued Medications Enoxaparin Sodium (Lovenox) 30 mg SUBCUT DAILY@1600 [facility] Last Admin: 05/01/18 17:54 Dose: Not Given Enoxaparin Sodium (Lovenox) 80 mg SUBCUT 0800,2000 [facility] Last Admin: 05/01/18 16:45 Dose: 80 mg Furosemide (Lasix) 40 mg IVPUSH ONETIME ONE Stop: 05/01/18 17:47 Last Admin: 05/01/18 18:06 Dose: 40 mg - Exam Quality Assessment: Supplemental Oxygen General: Alert, Oriented HEENT: Mucous Membr. Moist/[place] Neck: Supple Lungs: Decreased Breath Sounds, Wheezing Cardiovascular: Regular Rate, Regular Rhythm GI/Abdominal Exam: Normal Bowel Sounds, Soft, Non-Tender Extremities: Normal Inspection, Pedal Edema (1+) Skin: Warm, Dry Neurological: No New Focal Deficit - Problem List & Annotations (1) COPD exacerbation SNOMED Code(s): 121930399 Code(s): J44.1 - CHRONIC OBSTRUCTIVE PULMONARY DISEASE W (ACUTE) EXACERBATION Status: Acute Priority: High Current Visit: Yes (2) CHF (congestive heart failure) SNOMED Code(s): 99961775 Code(s): I50.9 - HEART FAILURE, UNSPECIFIED Status: Acute Priority: High Current Visit: Yes Qualifiers: Heart failure type: systolic Heart failure chronicity: acute Qualified Code(s): I50.21 - Acute systolic (congestive) heart failure (3) Elevated d-dimer SNOMED Code(s): 040193653 Code(s): R79.89 - OTHER SPECIFIED ABNORMAL FINDINGS OF BLOOD CHEMISTRY Status: Acute Priority: High Current Visit: Yes - Problem List Review Problem List Initiated/Reviewed/Updated: Yes - My Orders Last 24 Hours: My Active Orders 05/02/18 09:30 Furosemide [Lasix] 40 mg IVPUSH 0800,1600 05/02/18 20:00 Gabapentin [Neurontin] 600 mg PO BEDTIME - Assessment Assessment:: COPD Exacerbation Acute CHF, mild Elevated D-Dimer - Plan Plan:: Patient feeling better from admission yesterday. Oxygen sats 95% on 2 liters of oxygen. Still feels chest tightness and shortness of breath. Edema 1+. Lung sounds noted expiratory wheezing, diminished throughout. Labs show normal WBC at 6.9 on admit. Creatinine was 1.6 which is chronic for her but precludes the ability to proceed with a CTA of the chest to rule out PE. Was covered empirically for PE with Lovenox BID as a result. ProBNP showed mild elevated at 1903. Given a one time dose of IV Lasix on admit. Will proceed with ultrasound of lower extremities to look for DVT. Has been travelling per flight recently. Start IV Lasix 40 mg BID. Continue nitropaste. Monitor telemetry. Repeat chest xray later today. Repeat labs in am. Inappropriate for discharge.
[2018-05-02] MEDS ORDERED: cefTRIAXone 1 GM Vial IVPUSH ONE (18:36)
[2018-05-02] MEDS ORDERED: Gabapentin 300 MG Cap PO SCH (20:00)
[2018-05-02] MEDS ORDERED: Azithromycin 500 MG in Sodium Chloride 0.9% 250 ML IV ONE (20:00)
[2018-05-02] MEDS: Insulin Detemir 100 Units/ML 3 ML Pen SUBCUT SCH (20:45)
[2018-05-02] MEDS ORDERED: Enoxaparin 60 MG/0.6 ML Syringe ONE (20:53)
[2018-05-03] MEDS: Nitroglycerin 2% Oint 1 GM UD Packet TOP SCH ×2 (02:13→10:41)
[2018-05-03] MEDS: Insulin Aspart 100 Units/ML 3 ML Pen SUBCUT SCH ×2 (08:07→11:56)
[2018-05-03] MEDS: amLODIPine 2.5 MG Tab PO SCH (08:08)
[2018-05-03] MEDS: Mirtazapine 15 MG Tab PO SCH (08:08)
[2018-05-03] MEDS: DULoxetine 30 MG Cap PO SCH (08:08)
[2018-05-03] MEDS: Losartan 100 MG Tab PO SCH (08:09)
[2018-05-03] MEDS: Sertraline 25 MG Tab PO SCH (08:09)
[2018-05-03] MEDS: Albuterol/Ipratropium 3.0-0.5 MG/3 ML Neb Soln NEB SCH ×2 (08:28→12:35)
[2018-05-03] MEDS: Enoxaparin 60 MG/0.6 ML Syringe SUBCUT SCH (08:28)
[2018-05-03] MEDS: Pantoprazole 40 MG Vial IVPUSH SCH (11:51)
--- NOTE | 2018-05-03 12:50 | PCM.DCSUM1 ---
Discharge Summary - Hospital Course Free Text/Narrative:: Patient presented to clinic to see Dr. Melo with increasing shortness of breath. Had recently been to [place] and noted after returning home from the flight , had orthopnea, edema and increased shortness of breath. Hypoxic in the clinic with sats noted 85% on room air. Admitted for further work up. D-Dimer elevated at 2.18. Unable to do CTA on day of admit due to creatinine of 1.6 so Janumet was held. She was noted to have mild CHF with a ProBNP of 1900. Chest xray question of infiltrate versus failure. IV Lasix ordered. Covered with Lovenox for presumptive PE with Lovenox 60 mg BID. WBC within normal limits. CRP 6.3. Diagnosis: Stroke: No Modified [place] Scale: No Symptoms at All Modified [place] Scale Score: 0 - Discharge Data Discharge Date: 05/03/18 Discharge Disposition: Home, Self-Care 01 Condition: Good - Discharge Diagnosis/Problem(s) (1) COPD exacerbation SNOMED Code(s): 695836090 ICD Code: J44.1 - CHRONIC OBSTRUCTIVE PULMONARY DISEASE W (ACUTE) EXACERBATION Status: Acute Priority: High Current Visit: Yes (2) CHF (congestive heart failure) SNOMED Code(s): 23040999 ICD Code: I50.9 - HEART FAILURE, UNSPECIFIED Status: Acute Priority: High Current Visit: Yes Qualifiers: Heart failure type: systolic Heart failure chronicity: acute Qualified Code(s): I50.21 - Acute systolic (congestive) heart failure (3) Elevated d-dimer SNOMED Code(s): 364319870 ICD Code: R79.89 - OTHER SPECIFIED ABNORMAL FINDINGS OF BLOOD CHEMISTRY Status: Acute Priority: High Current Visit: Yes (4) Pneumonia SNOMED Code(s): 813338565 ICD Code: J18.9 - PNEUMONIA, UNSPECIFIED ORGANISM Status: Acute Priority : High Current Visit: Yes Qualifiers: Laterality: right Lung location: upper lobe of lung - Patient Summary/Data Complications: none Hospital Course: Patient admitted with increased shortness of breath after recent flight. Had noted orthopnea and increased edema. Initial lab work showed mild CHF with ProBNP of 1900. D-Dimer was elevated at 2.18 but due to chronic renal insufficiency and a creatinine of 1.6, initial CTA was not done and Jamumet was held with hopes of being able to proceed with testing if creatinine improved. Ultrasound of lower extremities negative for any clots. Have continued to cover her with Lovenox 60 mg BID for presumptive PE. Covered with empiric antibiotics as radiology felt chest xray could be indicative of a infiltrate versus mild failure. IV Lasix given with improvement of edema. Patient's overall status has improved from admit, is breathing easier but remains tight. Labs have remained stable, creatinine no change at 1.6. Blood pressure has increased to 170s/70 despite usual meds and nitropaste as initially metoprolol was held due to breathing concerns. That has since been resumed. Dr. Melo spoke with Dr. Martinez at [facility] today about concerns with failure versus infiltrate versus PE and ongoing shortness of breath. Agreed patient needed transfer with CTA and direct lytic therapy if clot is found. Patient informed of this. Risks and benefits of transfer discussed with patient. Risks of transfer include vehicular crash, worsening status or . Risks of non transfer same. Benefits of transfer include more specialized care and treatment and testing. Benefits of non transfer include care close to home. Agrees to transfer. - Discharge Plan *PRESCRIPTION DRUG MONITORING PROGRAM REVIEWED*: No *COPY OF PRESCRIPTION DRUG MONITORING REPORT IN PATIENT [place]: No Home Medications: Home Meds DULoxetine [Cymbalta] 60 mg PO DAILY 09/19/17 [History] Gemfibrozil 600 mg PO BIDMEALS 09/19/17 [History] Losartan Potassium 100 mg PO DAILY 09/19/17 [History] Magnesium Oxide/Mag AA Chelate [Magnesium] 300 mg PO DAILY 09/19/17 [History] Nitrofurantoin Macrocrystal [Macrodantin] 50 mg PO DAILY 09/19/17 [History] Sertraline HCl 50 mg PO DAILY 09/19/17 [History] Simvastatin 40 mg PO BEDTIME 09/19/17 [History] Albuterol/Ipratropium [DuoNeb 3.0-0.5 MG/3 ML] 3 ml NEB QID PRN #28 neb [Rx] Multivitamin [Daily Nolan] 1 tab PO DAILY 10/11/17 [History] Cyanocobalamin (Vitamin B-12) [Cyanocobalamin Injection] 1,000 mcg IM ASDIRECTED 05/01/18 [History] Insulin Glargine,Hum.Rec.Anlog [Alexxaglar [place] U-100] 50 unit SQ BEDTIME 05/01 [History] amLODIPine Besylate [Amlodipine Besylate] 2.5 mg PO DAILY 05/01/18 [History] sitaGLIPtin Phos/Metformin HCl [Janumet 50-1,000 MG] 1 each PO BIDMEALS [History] Gabapentin [Neurontin] 600 mg PO BEDTIME 05/02/18 [History] - Discharge Summary/Plan Comment DC Time >30 min.: Yes Discharge Summary/Plan Comment: Transfer to [facility] to Dr. Martinez Time with patient 15 minutes Time for consult 5 minutes Time for orders and documentation 15 minutes - General Info Date of Service: 05/03/18 Admission Dx/Problem (Free Text: Shortness of Breath COPD Exacerbation Rule out DVT/PE Functional Status: Reports: Pain Controlled, Tolerating Diet. Denies: Ambulating - Review of Systems General: Reports: Weakness, Fatigue. Denies: Fever HEENT: Reports: Sinus Congestion, Rhinitis Pulmonary: Reports: Shortness of Breath, Cough, Wheezing Cardiovascular: Reports: Edema. Denies: Chest Pain, Lightheadedness Gastrointestinal: Denies: Abdominal Pain, Nausea, Vomiting Genitourinary: Reports: No Symptoms Musculoskeletal: Reports: No Symptoms Skin: Reports: No Symptoms Neurological: Reports: No Symptoms Psychiatric: Reports: No Symptoms - Patient Data Vitals - Most Recent: Last Vital Signs Temp 97.7 F 05/03/18 11:46 Pulse 76 05/03/18 11:46 Resp 16 05/03/18 11:46 BP 150/69 H 05/03/18 11:46 Pulse Ox 95 05/03/18 11:46 Weight - Most Recent: 216 lb 4.16 oz I&O - Last 24 hours: Intake & Output 05/02/18 05/03/18 05/03/18 22:59 06:59 14:59 Intake Total 1810 860 863 Output Total 4664 696 2482 Balance 410 -43 -327 Lab Results - Last 24 hrs: Laboratory Results - last 24 hr 05/02/18 05/02/18 05/03/18 Range/Units 17:12 20:30 07:00 WBC 5.1 (5.0-10.0) 10^3/uL RBC 3.20 L (4.00-5.50) 10^6/uL Hgb 9.1 L (12.0-16.0) g/dL Hct 28.3 L (37.0-47.0) % MCV 88.4 (82.0-94.0) fL MCH 28.4 (27.0-32.0) pg MCHC 32.2 L (33.0-38.0) g/dL RDW Coeff of Francis 12.8 (11.0-15.0) % Plt Count 300 (150-400) 10^3/uL Neut % (Auto) 60.7 (35-85) % Lymph % (Auto) 22.4 (10-55) % [place] % (Auto) 12.6 (0-16) % Eos % (Auto) 3.9 (0-5) % Baso % (Auto) 0.4 (0-3) % Neut # (Auto) 3.12 (1.80-7.00) 10^3/uL Lymph # (Auto) 1.15 (1.00-4.80) 10^3/uL [place] # (Auto) 0.65 (0.00-0.80) 10^3/uL Eos # (Auto) 0.20 (0.00-0.45) 10^3/uL Baso # (Auto) 0.02 10^3/uL Sodium (136-145) mEq/L Potassium (3.5-5.0) mEq/L Chloride (98-106) mEq/L Carbon Dioxide (21-32) mmol/L BUN (7-18) mg/dL Creatinine (0.6-1.0) mg/dL Est Cr Clr Drug Dosing mL/min Estimated GFR (MDRD) (>=60) mL/min Glucose (75-99) mg/dL POC Glucose 273 H 269 H (75-105) mg/dl Calcium (8.4-10.1) mg/dL C-Reactive Protein (0.2-0.8) mg/dL 05/03/18 05/03/18 05/03/18 Range/Units 07:00 07:42 11:46 WBC (5.0-10.0) 10^3/uL RBC (4.00-5.50) 10^6/uL Hgb (12.0-16.0) g/dL Hct (37.0-47.0) % MCV (82.0-94.0) fL MCH (27.0-32.0) pg MCHC (33.0-38.0) g/dL RDW Coeff of Francis (11.0-15.0) % Plt Count (150-400) 10^3/uL Neut % (Auto) (35-85) % Lymph % (Auto) (10-55) % [place] % (Auto) (0-16) % Eos % (Auto) (0-5) % Baso % (Auto) (0-3) % Neut # (Auto) (1.80-7.00) 10^3/uL Lymph # (Auto) (1.00-4.80) 10^3/uL [place] # (Auto) (0.00-0.80) 10^3/uL Eos # (Auto) (0.00-0.45) 10^3/uL Baso # (Auto) 10^3/uL Sodium 145 (136-145) mEq/L Potassium 4.7 (3.5-5.0) mEq/L Chloride 110 H (98-106) mEq/L Carbon Dioxide 27 (21-32) mmol/L BUN 29 H (7-18) mg/dL Creatinine 1.6 H (0.6-1.0) mg/dL Est Cr Clr Drug Dosing 30.91 mL/min Estimated GFR (MDRD) 32 L (>=60) mL/min Glucose 88 (75-99) mg/dL POC Glucose 81 197 H (75-105) mg/dl Calcium 8.6 (8.4-10.1) mg/dL C-Reactive Protein 1.6 H (0.2-0.8) mg/dL GOGO Results - Last 24 hrs: Microbiology 05/01/18 14:40 Aerobic Blood Culture - Preliminary Blood - Venous - Lab Draw NO GROWTH AFTER 1 DAY Anaerobic Blood Culture - Preliminary NO GROWTH AFTER 1 DAY 05/01/18 14:35 Aerobic Blood Culture - Preliminary Blood - Venous NO GROWTH AFTER 1 DAY Anaerobic Blood Culture - Preliminary NO GROWTH AFTER 1 DAY Med Orders - Current: Current Medications Albuterol/Ipratropium (Duoneb 3.0-0.5 Mg/3 Ml) 3 ml NEB QIDRT [facility] Last Admin: 05/03/18 12:35 Dose: 3 ml Albuterol/Ipratropium (Duoneb 3.0-0.5 Mg/3 Ml) 3 ml NEB QID PRN PRN Reason: Wheezing Amlodipine Besylate (Norvasc) 2.5 mg PO DAILY [facility] Last Admin: 05/03/18 08:08 Dose: 2.5 mg Ceftriaxone Sodium (Rocephin) 1 gm IVPUSH DAILY@1999 [facility] Duloxetine HCl (Cymbalta) 60 mg PO DAILY [facility] Last Admin: 05/03/18 08:08 Dose: 60 mg Enoxaparin Sodium (Lovenox) 60 mg SUBCUT [facility] Last Admin: 05/03/18 08:28 Dose: 60 mg Furosemide (Lasix) 40 mg PO DAILY [facility] Gabapentin (Neurontin) 600 mg PO BEDTIME [facility] Last Admin: 05/02/18 19:37 Dose: 600 mg Azithromycin 500 mg/ Sodium (Chloride) 250 mls @ 250 mls/hr IV DAILY@1999 [facility] Insulin Aspart (Novolog) 0 unit SUBCUT WITHMEALSANDBED [facility]; Protocol Last Admin: 05/03/18 11:56 Dose: 2 unit Insulin Detemir (Levemir) 50 unit SUBCUT BEDTIME [facility] Last Admin: 05/02/18 20:45 Dose: 50 units Losartan Potassium (Cozaar) 100 mg PO DAILY [facility] Last Admin: 05/03/18 08:09 Dose: 100 mg Metoprolol Succinate (Toprol Xl) 50 mg PO DAILY [facility] Last Admin: 05/02/18 08:15 Dose: 50 mg Mirtazapine (Remeron) 15 mg PO DAILY [facility] Last Admin: 05/03/18 08:08 Dose: 15 mg Nitroglycerin (Nitro-Bid 2%) 0.5 gm TOP Q8H [facility] Last Admin: 05/03/18 10:41 Dose: 0.5 gm PtomSitagliptin Phos/Metformin Hcl [ Janumet 50-1,000 Mg] 1 each PO BIDMEALS [facility] Last Admin: 05/01/18 18:00 Dose: Not Given Pantoprazole Sodium (Protonix Iv) 40 mg IVPUSH DAILY@1200 [facility] Last Admin: 05/03/18 11:51 Dose: 40 mg Sertraline HCl (Zoloft) 50 mg PO DAILY [facility] Last Admin: 05/03/18 08:09 Dose: 50 mg Sodium Chloride (Saline Flush) 10 ml FLUSH ASDIRECTED PRN PRN Reason: Keep Vein Open Discontinued Medications Ceftriaxone Sodium (Rocephin) 1 gm IVPUSH ONETIME ONE Stop: 05/02/18 18:37 Last Admin: 05/02/18 19:38 Dose: 1 gm Enoxaparin Sodium (Lovenox) 30 mg SUBCUT DAILY@1600 [facility] Last Admin: 05/01/18 17:54 Dose: Not Given Enoxaparin Sodium (Lovenox) 80 mg SUBCUT 0800,1999 [facility] Last Admin: 05/01/18 16:45 Dose: 80 mg Enoxaparin Sodium (Lovenox) Confirm Administered Dose 60 mg .ROUTE .STK-MED ONE Stop: 05/02/18 20:54 Last Admin: 05/02/18 20:00 Dose: 60 mg Furosemide (Lasix) 40 mg IVPUSH ONETIME ONE Stop: 05/01/18 17:47 Last Admin: 05/01/18 18:06 Dose: 40 mg Furosemide (Lasix) 40 mg IVPUSH 0800,1600 [facility] Last Admin: 05/02/18 17:05 Dose: 40 mg Azithromycin 500 mg/ Sodium (Chloride) 250 mls @ 250 mls/hr IV ONETIME ONE Stop: 05/02/18 20:59 Last Admin: 05/02/18 19:38 Dose: 250 mls/hr - Exam Quality Assessment: Reports: Supplemental Oxygen General: Reports: Alert, Oriented HEENT: Reports: Mucous Membr. Moist/[place] Neck: Reports: Supple Lungs: Reports: Decreased Breath Sounds Cardiovascular: Reports: Regular Rate, Regular Rhythm GI/Abdominal Exam: Normal Bowel Sounds, Soft, Non-Tender Extremities: Normal Inspection, Pedal Edema Skin: Reports: Warm, Dry Neurological: Reports: No New Focal Deficit
[2018-05-03] MEDS ORDERED: Azithromycin 500 MG in Sodium Chloride 0.9% 250 ML IV SCH (20:00)
[2018-05-03] MEDS ORDERED: cefTRIAXone 1 GM Vial IVPUSH SCH (20:00)
[2018-05-04] MEDS ORDERED: Furosemide 40 MG Tab PO SCH (08:00)
== END 2018-05-03 13:50 | DRG 291 ==
LOC: CC.MS 14:03 → UNDOADMIN 14:03 → CC.MS 14:10
PROVIDERS: ADMIT Family Medicine; ATTEND Family Medicine
DX: I13.0 Hypertensive heart and chronic kidney disease with heart failure and stage 1 through stage 4 chronic kidney disease, or unspecified chronic kidney disease (principal); I50.21 Acute systolic (congestive) heart failure; I26.99 Other pulmonary embolism without acute cor pulmonale; J18.9 Pneumonia, unspecified organism; J44.1 Chronic obstructive pulmonary disease with (acute) exacerbation; J44.0 Chronic obstructive pulmonary disease with (acute) lower respiratory infection; E11.22 Type 2 diabetes mellitus with diabetic chronic kidney disease; N18.9 Chronic kidney disease, unspecified; R09.02 Hypoxemia; Z79.899 Other long term (current) drug therapy; Z79.4 Long term (current) use of insulin; D64.9 Anemia, unspecified; J30.9 Allergic rhinitis, unspecified; F32.9 Major depressive disorder, single episode, unspecified; M10.9 Gout, unspecified; E78.00 Pure hypercholesterolemia, unspecified; G47.30 Sleep apnea, unspecified; Z90.710 Acquired absence of both cervix and uterus
CPT/HCPCS: 36415; 36600; 71046; 80048; 80053; 81001; 82803; 82962; 83880; 84484; 85025; 85379; 86140; 87040; 93005; 93306; 93971-LT; 93971-RT; 94640; A9270-GY; C9113; J0456; J0696; J1650; J1815-GY; J1940; J7050; J7620-GY

== ENCOUNTER 2021-03-05 12:06 | Observation (INO) | payer MEDICARE, BC ==
[2021-03-05 13:12] LABS: CHLORIDE,CL 95 mEq/L (98-106); SODIUM,NA 135 mEq/L (136-145)
[2021-03-05] MEDS ORDERED: Sodium Chloride 0.9% 10 ML Syringe FLUSH PRN (14:25)
[2021-03-05] MEDS ORDERED: Ondansetron 4 MG Tab.DIS PO PRN (14:25)
[2021-03-05] MEDS ORDERED: Lactulose Soln 10 GM/15 ML 30 ML UD Cup PO PRN (16:00)
[2021-03-05] MEDS ORDERED: Albuterol/Ipratropium 3.0-0.5 MG/3 ML Neb Soln INH PRN (16:16)
[2021-03-05] MEDS: cefTRIAXone 2 GM Vial IVPUSH SCH (16:17)
[2021-03-05] MEDS: Acetaminophen 325 MG Tab PO PRN ×2 (16:17→20:19)
[2021-03-05] MEDS ORDERED: Loratadine 10 MG Tab PO PRN (16:24)
[2021-03-05] MEDS ORDERED: Calcium Acetate 667 MG Cap PO SCH (17:45)
[2021-03-05] MEDS ORDERED: METOPROLOL SUCCINATE 50 MG PO SCH (20:00)
[2021-03-05] MEDS ORDERED: Bumetanide 1 MG Tab PO SCH (20:00)
[2021-03-05] MEDS ORDERED: Insulin Glarg,Human.Rec.Analog 100 Unit/ML SUBCUT SCH (20:00)
[2021-03-05] MEDS ORDERED: SIMVASTATIN 20 MG PO SCH (20:00)
[2021-03-05] MEDS ORDERED: SERTRALINE HCL 50 MG PO SCH (20:00)
[2021-03-05] MEDS: Pantoprazole 40 MG Vial IVPUSH SCH (20:15)
[2021-03-05] MEDS ORDERED: LACTULOSE PO PRN (21:13)
[2021-03-06] MEDS: Acetaminophen 325 MG Tab PO PRN ×2 (00:51→16:03)
[2021-03-06] MEDS: Pantoprazole 40 MG Vial IVPUSH SCH (07:33)
[2021-03-06] MEDS: GEMFIBROZIL 600 MG PO SCH ×2 (07:36→12:05)
[2021-03-06] MEDS: CALCIUM ACETATE 667 MG PO SCH ×3 (07:38→17:33)
[2021-03-06] MEDS ORDERED: BUMETANIDE PO SCH ×2 (08:00→20:00)
[2021-03-06] MEDS ORDERED: AMLODIPINE BESYLATE 5 MG PO SCH (08:00)
[2021-03-06] MEDS ORDERED: Heparin Sodium 5,000 Units/ML Vial SUBCUT SCH (08:00)
[2021-03-06] MEDS ORDERED: LISINOPRIL 40 MG PO SCH (08:00)
[2021-03-06] MEDS ORDERED: DULOXETINE 60 MG PO SCH (08:00)
[2021-03-06] MEDS ORDERED: Bumetanide 1 MG Tab PO SCH (08:00)
[2021-03-06] MEDS ORDERED: Multivitamin Tab PO SCH (08:00)
[2021-03-06] MEDS ORDERED: METOPROLOL SUCCINATE 50 MG PO SCH (08:00)
[2021-03-06] MEDS ORDERED: SITAGLIPTIN 50 MG PO SCH (08:00)
[2021-03-06] MEDS: SEVELAMER 800 MG PO SCH ×2 (12:04→17:33)
--- NOTE | 2021-03-06 12:28 | PCM.PN ---
- General Info Date of Service: 03/06/21 Functional Status: Reports: Pain Controlled, Tolerating Diet - Review of Systems General: Reports: Weakness (generally), Fatigue HEENT: Reports: No Symptoms Pulmonary: Reports: Shortness of Breath, Cough, Wheezing. Denies: Sputum, Hemoptysis Cardiovascular: Reports: No Symptoms Gastrointestinal: Reports: No Symptoms. Denies: Abdominal Pain, Diarrhea, Nausea, Vomiting Genitourinary: Reports: No Symptoms Musculoskeletal: Reports: No Symptoms Skin: Reports: No Symptoms Neurological: Reports: No Symptoms Psychiatric: Reports: No Symptoms - Patient Data Vitals - Most Recent: Last Vital Signs Temp 98.8 F 03/06/21 08:00 Pulse 75 03/06/21 08:00 Resp 16 03/06/21 08:00 BP 141/62 H 03/06/21 08:00 Pulse Ox 94 L 03/06/21 08:00 Weight - Most Recent: 205 lb 8 oz Lab Results Last 24 Hours: Laboratory Results - last 24 hr 03/05/21 03/05/21 03/05/21 Range/Units 12:39 12:39 12:39 WBC 11.3 H (4.0-11.0) 10^3/uL RBC 3.36 L (4.00-5.50) x10^6/uL Hgb 10.8 L (12.0-16.0) g/dL Hct 31.0 L (37.0-47.0) % MCV 92.3 (83.0-97.0) fL MCH 32.1 H (27.0-32.0) pg MCHC 34.8 (32.0-36.0) g/dL RDW Coeff of Francis 13.6 (11.0-15.0) % Plt Count 204 (150-400) 10^3/uL Immature Gran % (Auto) 0.6 (0.0-4.9) % Neut % (Auto) 76.4 H (41-71) % Lymph % (Auto) 13.9 L (24-44) % [place] % (Auto) 8.3 (0-10) % Eos % (Auto) 0.4 (0-6) % Baso % (Auto) 0.4 (0-1) % Neut # (Auto) 8.65 H (1.80-8.00) x10^3/uL Lymph # (Auto) 1.57 (0.60-5.00) 10^3/uL [place] # (Auto) 0.94 (0.00-1.50) 10^3/uL Eos # (Auto) 0.04 (0.00-1.50) 10^3/uL Baso # (Auto) 0.04 (0.00-0.50) 10^3/uL Immature Gran # (Auto) 0.07 (0.00-0.49) 10^3/uL Sodium 135 L (136-145) mEq/L Potassium 4.2 (3.5-5.0) mEq/L Chloride 95 L (98-106) mEq/L Carbon Dioxide 30 (21-32) mmol/L BUN 54 H (7-18) mg/dL Creatinine 7.2 H* (0.6-1.0) mg/dL Est Cr Clr Drug Dosing TNP Estimated GFR (MDRD) 6 L (>=60) mL/min Glucose 188 H (75-99) mg/dL POC Glucose (75-105) mg/dL Lactic Acid (0.4-2.0) mmol/L Calcium 9.1 (8.4-10.1) mg/dL Total Bilirubin 0.7 (0.0-1.0) mg/dL AST 11 L (15-37) U/L ALT 12 (12-78) U/L Alkaline Phosphatase 81 (46-116) U/L C-Reactive Protein 19.6 H (0.2-0.8) mg/dL Total Protein 7.7 (6.4-8.2) g/dL Albumin 3.0 L (3.4-5.0) g/dL Urine Color Yellow (YELLOW) Urine Appearance Slightly cloudy (CLEAR) Urine pH 7.0 (4.5-8.0) Ur Specific [place] 1.025 H (1.003-1.020) Urine Protein >=300 H (NEGATIVE) mg/dL Urine Glucose (UA) 100 H (NEGATIVE) mg/dL Urine Ketones Negative (NEGATIVE) mg/dL Urine Occult Blood Small H (NEGATIVE) Urine Nitrite Negative (NEGATIVE) Urine Bilirubin Negative (NEGATIVE) Urine Urobilinogen 0.2 (0.2-1.0) EU/dL Ur Leukocyte Esterase Small H (NEGATIVE) Urine RBC 5-10 H (0-5) /HPF Urine WBC 40-50 H (0-5) /HPF Ur Epithelial Cells Few H (NOT SEEN) /HPF Urine Bacteria Few H (NOT SEEN) /HPF Urinalysis Comment 03/05/21 03/05/21 03/05/21 Range/Units 12:39 17:33 21:08 WBC (4.0-11.0) 10^3/uL RBC (4.00-5.50) x10^6/uL Hgb (12.0-16.0) g/dL Hct (37.0-47.0) % MCV (83.0-97.0) fL MCH (27.0-32.0) pg MCHC (32.0-36.0) g/dL RDW Coeff of Francis (11.0-15.0) % Plt Count (150-400) 10^3/uL Immature Gran % (Auto) (0.0-4.9) % Neut % (Auto) (41-71) % Lymph % (Auto) (24-44) % [place] % (Auto) (0-10) % Eos % (Auto) (0-6) % Baso % (Auto) (0-1) % Neut # (Auto) (1.80-8.00) x10^3/uL Lymph # (Auto) (0.60-5.00) 10^3/uL [place] # (Auto) (0.00-1.50) 10^3/uL Eos # (Auto) (0.00-1.50) 10^3/uL Baso # (Auto) (0.00-0.50) 10^3/uL Immature Gran # (Auto) (0.00-0.49) 10^3/uL Sodium (136-145) mEq/L Potassium (3.5-5.0) mEq/L Chloride (98-106) mEq/L Carbon Dioxide (21-32) mmol/L BUN (7-18) mg/dL Creatinine (0.6-1.0) mg/dL Est Cr Clr Drug Dosing Estimated GFR (MDRD) (>=60) mL/min Glucose (75-99) mg/dL POC Glucose 185 H 256 H (75-105) mg/dL Lactic Acid 1.3 (0.4-2.0) mmol/L Calcium (8.4-10.1) mg/dL Total Bilirubin (0.0-1.0) mg/dL AST (15-37) U/L ALT (12-78) U/L Alkaline Phosphatase (46-116) U/L C-Reactive Protein (0.2-0.8) mg/dL Total Protein (6.4-8.2) g/dL Albumin (3.4-5.0) g/dL Urine Color (YELLOW) Urine Appearance (CLEAR) Urine pH (4.5-8.0) Ur Specific [place] (1.003-1.020) Urine Protein (NEGATIVE) mg/dL Urine Glucose (UA) (NEGATIVE) mg/dL Urine Ketones (NEGATIVE) mg/dL Urine Occult Blood (NEGATIVE) Urine Nitrite (NEGATIVE) Urine Bilirubin (NEGATIVE) Urine Urobilinogen (0.2-1.0) EU/dL Ur Leukocyte Esterase (NEGATIVE) Urine RBC (0-5) /HPF Urine WBC (0-5) /HPF Ur Epithelial Cells (NOT SEEN) /HPF Urine Bacteria (NOT SEEN) /HPF Urinalysis Comment 03/06/21 03/06/21 03/06/21 Range/Units 07:05 07:05 11:35 WBC 8.0 (4.0-11.0) 10^3/uL RBC 3.02 L (4.00-5.50) x10^6/uL Hgb 9.8 L (12.0-16.0) g/dL Hct 28.3 L (37.0-47.0) % MCV 93.7 (83.0-97.0) fL MCH 32.5 H (27.0-32.0) pg MCHC 34.6 (32.0-36.0) g/dL RDW Coeff of Francis 13.6 (11.0-15.0) % Plt Count 199 (150-400) 10^3/uL Immature Gran % (Auto) 0.7 (0.0-4.9) % Neut % (Auto) 69.1 (41-71) % Lymph % (Auto) 16.9 L (24-44) % [place] % (Auto) 10.5 H (0-10) % Eos % (Auto) 2.6 (0-6) % Baso % (Auto) 0.2 (0-1) % Neut # (Auto) 5.54 (1.80-8.00) x10^3/uL Lymph # (Auto) 1.36 (0.60-5.00) 10^3/uL [place] # (Auto) 0.84 (0.00-1.50) 10^3/uL Eos # (Auto) 0.21 (0.00-1.50) 10^3/uL Baso # (Auto) 0.02 (0.00-0.50) 10^3/uL Immature Gran # (Auto) 0.06 (0.00-0.49) 10^3/uL Sodium 137 (136-145) mEq/L Potassium 3.3 L D (3.5-5.0) mEq/L Chloride 97 L (98-106) mEq/L Carbon Dioxide 29 (21-32) mmol/L BUN 52 H (7-18) mg/dL Creatinine 5.4 H* (0.6-1.0) mg/dL Est Cr Clr Drug Dosing 8.75 Estimated GFR (MDRD) 8 L (>=60) mL/min Glucose 215 H (75-99) mg/dL POC Glucose 227 H (75-105) mg/dL Lactic Acid (0.4-2.0) mmol/L Calcium 8.6 (8.4-10.1) mg/dL Total Bilirubin (0.0-1.0) mg/dL AST (15-37) U/L ALT (12-78) U/L Alkaline Phosphatase (46-116) U/L C-Reactive Protein 32.2 H (0.2-0.8) mg/dL Total Protein (6.4-8.2) g/dL Albumin (3.4-5.0) g/dL Urine Color (YELLOW) Urine Appearance (CLEAR) Urine pH (4.5-8.0) Ur Specific [place] (1.003-1.020) Urine Protein (NEGATIVE) mg/dL Urine Glucose (UA) (NEGATIVE) mg/dL Urine Ketones (NEGATIVE) mg/dL Urine Occult Blood (NEGATIVE) Urine Nitrite (NEGATIVE) Urine Bilirubin (NEGATIVE) Urine Urobilinogen (0.2-1.0) EU/dL Ur Leukocyte Esterase (NEGATIVE) Urine RBC (0-5) /HPF Urine WBC (0-5) /HPF Ur Epithelial Cells (NOT SEEN) /HPF Urine Bacteria (NOT SEEN) /HPF Urinalysis Comment Jan Results Last 24 Hours: Microbiology 03/05/21 12:39 Urine Culture - Preliminary Urine, Voided Med Orders - Current: Current Medications Acetaminophen (Acetaminophen 325 Mg Tab) 650 mg PO Q4H PRN PRN Reason: Pain (Mild 1-3)/fever Last Admin: 03/06/21 00:51 Dose: 650 mg Documented by: Albuterol/Ipratropium (Albuterol/Ipratropium 3.0-0.5 Mg/3 Ml Neb Soln) 3 ml INH QID PRN PRN Reason: Shortness of Breath Last Admin: 03/06/21 12:11 Dose: 3 ml Documented by: Calcitriol (Calcitriol 0.25 Mcg Cap) 0.25 mcg PO MoTu@0800 [facility] Calcium Acetate (Calcium Acetate 667 Mg Cap Own Med) 1,334 mg PO TIDMEALS [facility] Last Admin: 03/06/21 12:06 Dose: 1,334 mg Documented by: Ceftriaxone Sodium (Ceftriaxone 2 Gm Vial) 2 gm IVPUSH Q24H [facility] Last Admin: 03/05/21 16:17 Dose: 2 gm Documented by: Gemfibrozil (Gemfibrozil 600 Mg Tab Ptom) 600 mg PO BID@0800,1200 [facility] Last Admin: 03/06/21 12:05 Dose: 600 mg Documented by: Heparin Sodium (Porcine) (Heparin Sodium 5,000 Units/Ml Vial) 5,000 units SUBCUT Q12H [facility] Last Admin: 03/06/21 07:34 Dose: 5,000 units Documented by: Insulin Glargine (Insulin Glarg,Human.Rec.Analog 100 Unit/Ml) 50 unit SUBCUT BEDTIME [facility] Last Admin: 03/05/21 21:09 Dose: 50 units Documented by: Loratadine (Loratadine 10 Mg Tab) 10 mg PO DAILY PRN PRN Reason: Allergies Multivitamins/Minerals/Vitamin C (Multivitamin Tab) 1 tab PO DAILY [facility] Last Admin: 03/06/21 07:33 Dose: 1 tab Documented by: Amlodipine Besylate (5 Mg Tablet Ptom) 5 mg PO DAILY [facility] Last Admin: 03/06/21 07:37 Dose: 5 mg Documented by: Duloxetine [Cymbalta (] 60 Mg Cap Ptom) 60 mg PO DAILY [facility] Last Admin: 03/06/21 07:37 Dose: 60 mg Documented by: Lisinopril 40 Mg (Tablet Ptom) 40 mg PO DAILY [facility] Last Admin: 03/06/21 07:37 Dose: 40 mg Documented by: Metoprolol Succinate 50 Mg Tab.Er. Ptom 75 mg PO DAILY@0800 [facility] Last Admin: 03/06/21 07:39 Dose: 75 mg Documented by: Sertraline Hcl 50 Mg (Tablet Ptom) 50 mg PO BEDTIME [facility] Last Admin: 03/05/21 19:57 Dose: 50 mg Documented by: Metoprolol Succinate 50 Mg Tab.Er. Ptom 50 mg PO QPM [facility] Last Admin: 03/05/21 19:58 Dose: 50 mg Documented by: Sitagliptin 50mg Tab (Ptom) 50 mg PO DAILY [facility] Last Admin: 03/06/21 07:36 Dose: 50 mg Documented by: Ondansetron HCl (Ondansetron 4 Mg Tab.Dis) 8 mg PO Q4H PRN PRN Reason: nausea, able to take PO Pantoprazole Sodium (Pantoprazole 40 Mg Vial) 40 mg IVPUSH Q12H [facility] Last Admin: 03/06/21 07:33 Dose: 40 mg Documented by: Bumetanide 2mg Tabs 6mg/Dose Own Med 0 each PO DAILY [facility] Last Admin: 03/06/21 07:35 Dose: 1 each Documented by: Bumetanide 2mg Tab 4mg/Dose Own Med* * 0 each PO QPM [facility] Lactulose 10 Gm/15ml 473ml Bottle * *Own Med 0 each PO DAILY PRN PRN Reason: Constipation Sevelamer 800 Mg Tab (*Pt Own Med*) 0 each PO TIDMEALS [facility] Last Admin: 03/06/21 12:04 Dose: 1 each Documented by: Metolazone 5 Mg Tab (*Pt Own Med*) 0 each PO MoTuWeTh@0800 [facility] Simvastatin (Simvastatin 20 Mg Tab Ptom) 20 mg PO BEDTIME [facility] Last Admin: 03/05/21 19:59 Dose: 20 mg Documented by: Sodium Chloride (Sodium Chloride 0.9% 10 Ml Syringe) 10 ml FLUSH ASDIRECTED PRN PRN Reason: Keep Vein Open Discontinued Medications Bumetanide (Bumetanide 1 Mg Tab) 6 mg PO DAILY [facility] Bumetanide (Bumetanide 1 Mg Tab) 4 mg PO QPM [facility] Last Admin: 03/05/21 21:18 Dose: Not Given Documented by: Calcium Acetate (Calcium Acetate 667 Mg Cap) 1,334 mg PO TIDMEALS [facility] Last Admin: 03/05/21 17:54 Dose: 1,334 mg Documented by: Lactulose (Lactulose Soln 10 Gm/15 Ml 30 Ml Ud Cup) 10 gm PO DAILY PRN PRN Reason: Constipation - Exam General: Alert, Oriented, Cooperative, No Acute Distress Neck: Supple Lungs: Decreased Breath Sounds (moderately throughout), Wheezing (moderately throughout) Cardiovascular: Regular Rate, Regular Rhythm GI/Abdominal Exam: Soft, Non-Tender, No Organomegaly, No Distention, Pelvis Stable, Other (peritoneal dialysis) (Female) Exam: Other (peritoneal dialysis) Back Exam: Normal Inspection. No: CVA Tenderness (L), CVA Tenderness (R) Extremities: Normal Inspection, Normal Range of Motion, Non-Tender, No Pedal Edema, Normal Capillary Refill Peripheral Pulses: 2+: Radial (L), Radial (R), Posterior Tibial (L), Posterior Tibial (R) Skin: Warm, Dry, Intact Neurological: No New Focal Deficit, Normal Gait, Normal Speech, Strength Equal Bilateral, Sensation Intact, Cranial Nerves Intact Psy/Mental Status: Alert, Normal Affect, Normal Mood - Patient Data Lab Results Last 24 hrs: Laboratory Results - last 24 hr 03/05/21 03/05/21 03/05/21 Range/Units 12:39 12:39 12:39 WBC 11.3 H (4.0-11.0) 10^3/uL RBC 3.36 L (4.00-5.50) x10^6/uL Hgb 10.8 L (12.0-16.0) g/dL Hct 31.0 L (37.0-47.0) % MCV 92.3 (83.0-97.0) fL MCH 32.1 H (27.0-32.0) pg MCHC 34.8 (32.0-36.0) g/dL RDW Coeff of Francis 13.6 (11.0-15.0) % Plt Count 204 (150-400) 10^3/uL Immature Gran % (Auto) 0.6 (0.0-4.9) % Neut % (Auto) 76.4 H (41-71) % Lymph % (Auto) 13.9 L (24-44) % [place] % (Auto) 8.3 (0-10) % Eos % (Auto) 0.4 (0-6) % Baso % (Auto) 0.4 (0-1) % Neut # (Auto) 8.65 H (1.80-8.00) x10^3/uL Lymph # (Auto) 1.57 (0.60-5.00) 10^3/uL [place] # (Auto) 0.94 (0.00-1.50) 10^3/uL Eos # (Auto) 0.04 (0.00-1.50) 10^3/uL Baso # (Auto) 0.04 (0.00-0.50) 10^3/uL Immature Gran # (Auto) 0.07 (0.00-0.49) 10^3/uL Sodium 135 L (136-145) mEq/L Potassium 4.2 (3.5-5.0) mEq/L Chloride 95 L (98-106) mEq/L Carbon Dioxide 30 (21-32) mmol/L BUN 54 H (7-18) mg/dL Creatinine 7.2 H* (0.6-1.0) mg/dL Est Cr Clr Drug Dosing TNP Estimated GFR (MDRD) 6 L (>=60) mL/min Glucose 188 H (75-99) mg/dL POC Glucose (75-105) mg/dL Lactic Acid (0.4-2.0) mmol/L Calcium 9.1 (8.4-10.1) mg/dL Total Bilirubin 0.7 (0.0-1.0) mg/dL AST 11 L (15-37) U/L ALT 12 (12-78) U/L Alkaline Phosphatase 81 (46-116) U/L C-Reactive Protein 19.6 H (0.2-0.8) mg/dL Total Protein 7.7 (6.4-8.2) g/dL Albumin 3.0 L (3.4-5.0) g/dL Urine Color Yellow (YELLOW) Urine Appearance Slightly cloudy (CLEAR) Urine pH 7.0 (4.5-8.0) Ur Specific [place] 1.025 H (1.003-1.020) Urine Protein >=300 H (NEGATIVE) mg/dL Urine Glucose (UA) 100 H (NEGATIVE) mg/dL Urine Ketones Negative (NEGATIVE) mg/dL Urine Occult Blood Small H (NEGATIVE) Urine Nitrite Negative (NEGATIVE) Urine Bilirubin Negative (NEGATIVE) Urine Urobilinogen 0.2 (0.2-1.0) EU/dL Ur Leukocyte Esterase Small H (NEGATIVE) Urine RBC 5-10 H (0-5) /HPF Urine WBC 40-50 H (0-5) /HPF Ur Epithelial Cells Few H (NOT SEEN) /HPF Urine Bacteria Few H (NOT SEEN) /HPF Urinalysis Comment 03/05/21 03/05/21 03/05/21 Range/Units 12:39 17:33 21:08 WBC (4.0-11.0) 10^3/uL RBC (4.00-5.50) x10^6/uL Hgb (12.0-16.0) g/dL Hct (37.0-47.0) % MCV (83.0-97.0) fL MCH (27.0-32.0) pg MCHC (32.0-36.0) g/dL RDW Coeff of Francis (11.0-15.0) % Plt Count (150-400) 10^3/uL Immature Gran % (Auto) (0.0-4.9) % Neut % (Auto) (41-71) % Lymph % (Auto) (24-44) % [place] % (Auto) (0-10) % Eos % (Auto) (0-6) % Baso % (Auto) (0-1) % Neut # (Auto) (1.80-8.00) x10^3/uL Lymph # (Auto) (0.60-5.00) 10^3/uL [place] # (Auto) (0.00-1.50) 10^3/uL Eos # (Auto) (0.00-1.50) 10^3/uL Baso # (Auto) (0.00-0.50) 10^3/uL Immature Gran # (Auto) (0.00-0.49) 10^3/uL Sodium (136-145) mEq/L Potassium (3.5-5.0) mEq/L Chloride (98-106) mEq/L Carbon Dioxide (21-32) mmol/L BUN (7-18) mg/dL Creatinine (0.6-1.0) mg/dL Est Cr Clr Drug Dosing Estimated GFR (MDRD) (>=60) mL/min Glucose (75-99) mg/dL POC Glucose 185 H 256 H (75-105) mg/dL Lactic Acid 1.3 (0.4-2.0) mmol/L Calcium (8.4-10.1) mg/dL Total Bilirubin (0.0-1.0) mg/dL AST (15-37) U/L ALT (12-78) U/L Alkaline Phosphatase (46-116) U/L C-Reactive Protein (0.2-0.8) mg/dL Total Protein (6.4-8.2) g/dL Albumin (3.4-5.0) g/dL Urine Color (YELLOW) Urine Appearance (CLEAR) Urine pH (4.5-8.0) Ur Specific [place] (1.003-1.020) Urine Protein (NEGATIVE) mg/dL Urine Glucose (UA) (NEGATIVE) mg/dL Urine Ketones (NEGATIVE) mg/dL Urine Occult Blood (NEGATIVE) Urine Nitrite (NEGATIVE) Urine Bilirubin (NEGATIVE) Urine Urobilinogen (0.2-1.0) EU/dL Ur Leukocyte Esterase (NEGATIVE) Urine RBC (0-5) /HPF Urine WBC (0-5) /HPF Ur Epithelial Cells (NOT SEEN) /HPF Urine Bacteria (NOT SEEN) /HPF Urinalysis Comment 03/06/21 03/06/21 03/06/21 Range/Units 07:05 07:05 11:35 WBC 8.0 (4.0-11.0) 10^3/uL RBC 3.02 L (4.00-5.50) x10^6/uL Hgb 9.8 L (12.0-16.0) g/dL Hct 28.3 L (37.0-47.0) % MCV 93.7 (83.0-97.0) fL MCH 32.5 H (27.0-32.0) pg MCHC 34.6 (32.0-36.0) g/dL RDW Coeff of Francis 13.6 (11.0-15.0) % Plt Count 199 (150-400) 10^3/uL Immature Gran % (Auto) 0.7 (0.0-4.9) % Neut % (Auto) 69.1 (41-71) % Lymph % (Auto) 16.9 L (24-44) % [place] % (Auto) 10.5 H (0-10) % Eos % (Auto) 2.6 (0-6) % Baso % (Auto) 0.2 (0-1) % Neut # (Auto) 5.54 (1.80-8.00) x10^3/uL Lymph # (Auto) 1.36 (0.60-5.00) 10^3/uL [place] # (Auto) 0.84 (0.00-1.50) 10^3/uL Eos # (Auto) 0.21 (0.00-1.50) 10^3/uL Baso # (Auto) 0.02 (0.00-0.50) 10^3/uL Immature Gran # (Auto) 0.06 (0.00-0.49) 10^3/uL Sodium 137 (136-145) mEq/L Potassium 3.3 L D (3.5-5.0) mEq/L Chloride 97 L (98-106) mEq/L Carbon Dioxide 29 (21-32) mmol/L BUN 52 H (7-18) mg/dL Creatinine 5.4 H* (0.6-1.0) mg/dL Est Cr Clr Drug Dosing 8.75 Estimated GFR (MDRD) 8 L (>=60) mL/min Glucose 215 H (75-99) mg/dL POC Glucose 227 H (75-105) mg/dL Lactic Acid (0.4-2.0) mmol/L Calcium 8.6 (8.4-10.1) mg/dL Total Bilirubin (0.0-1.0) mg/dL AST (15-37) U/L ALT (12-78) U/L Alkaline Phosphatase (46-116) U/L C-Reactive Protein 32.2 H (0.2-0.8) mg/dL Total Protein (6.4-8.2) g/dL Albumin (3.4-5.0) g/dL Urine Color (YELLOW) Urine Appearance (CLEAR) Urine pH (4.5-8.0) Ur Specific [place] (1.003-1.020) Urine Protein (NEGATIVE) mg/dL Urine Glucose (UA) (NEGATIVE) mg/dL Urine Ketones (NEGATIVE) mg/dL Urine Occult Blood (NEGATIVE) Urine Nitrite (NEGATIVE) Urine Bilirubin (NEGATIVE) Urine Urobilinogen (0.2-1.0) EU/dL Ur Leukocyte Esterase (NEGATIVE) Urine RBC (0-5) /HPF Urine WBC (0-5) /HPF Ur Epithelial Cells (NOT SEEN) /HPF Urine Bacteria (NOT SEEN) /HPF Urinalysis Comment Result Diagrams: 03/06/21 07:05 03/06/21 07:05 Jan Results Last 24 hrs: Microbiology 03/05/21 12:39 Urine Culture - Preliminary Urine, Voided Sepsis Event Note - Evaluation Sepsis Screening Result: No Definite Risk - Focused Exam Vital Signs: Vital Signs Temp Pulse Resp BP Pulse Ox 03/06/21 08:00 98.8 F 75 16 141/62 H 94 L 03/06/21 03:01 98.4 F 84 18 143/63 H 94 L - Problem List Review Problem List Initiated/Reviewed/Updated: Yes - My Orders Last 24 Hours: My Active Orders 03/07/21 05:00 BASIC METABOLIC PANEL,BMP [CHEM] DAILY CBC WITH AUTO DIFF [HEME] DAILY CRP [C-REACTIVE PROTEIN] [CHEM] DAILY 03/08/21 05:00 BASIC METABOLIC PANEL,BMP [CHEM] DAILY CBC WITH AUTO DIFF [HEME] DAILY CRP [C-REACTIVE PROTEIN] [CHEM] DAILY - Plan Plan:: 03/06/21 1200 This patient was admitted for general weakness, UTI. Patient is on peritoneal dialysis and does this herself every night. Patient reports that she has been feeling generally weak for a few days. Report from ANNA is she had discussed patient with her renal provider and will admit here. If patient worsens may transfer if need. Today, the patient reports that she feels a little more generally weaker. She reports though that she has been able to get up from bed by self and ambulate without issues today. She reports that she has had a cough chronically and has been told that she has COPD. Patient reports that she has also been told that she has sleep apnea, but does not wear a CPAP. She reports that she sometimes wears oxygen at home when she feels like she needs it, especially at night. Patient reports that today she has felt like when she coughs though that she has wheezing with it, which is new. Patient oxygen sa turation upon entering the room, is 86% on RA. I ordered a breathing treatment, her oxygen saturation came up to 98% and she feels much improved. Awaiting on urine culture results. Awaiting on CXR read. Will continue IV abx and admit. Patient CR yesterday was 7.2, today is 5.4. She will continue with self peritoneal dialysis. The patient other labs yesterday were CRP 19.6, hgb 10.8. Today CRP is 32.2, Hgb 9.8. Patient denies any chest pain, shortness of breath, n, v, d, abd pain, GI bleeding.
[2021-03-06] MEDS: cefTRIAXone 2 GM Vial IVPUSH SCH (15:58)
[2021-03-06 16:25] LABS: O2 DELIVERY DEVICE ROOM AIR
[2021-03-06 16:26] LABS: BICARBONATE,ARTERIAL 23.8 mm/L (22.0-26.0); O2 SATURATION ARTERIAL 89 % (95-98); PCO2 ARTERIAL 34 mm/Hg0 (35-45); PO2 ARTERIAL 53 mm/Hg (80-100)
[2021-03-06 16:37] LABS: PTT,PARTIAL THROMBOPLSTIN TIME 26.7 SEC (23.2-32.3)
[2021-03-06 16:42] LABS: CHLORIDE,CL 94 mEq/L (98-106); SODIUM,NA 135 mEq/L (136-145)
--- NOTE | 2021-03-06 18:06 | PCM.DCSUM1 ---
Discharge Summary - Hospital Course HPI Initial Comments: 03/06/211599 The patient told the RN that she did not feel very good. RN asked me to come check on patient. The patient reports that she is having pain in the right side of her chest. She states " my diaphragm hurts". She reports that she feels increased shortness of breath, frontal bilateral temporal headache. She reports that her general weakness has increased and she reports that she can not get out of bed like she could earlier today. Patient reports that she has an increase in lightheadedness. She reports that when she takes big deep breaths that her right "diaphragm" hurts worse and she feels like her heart is beating out of her chest. She reports that she generally does not feel very well. The RN obtained an accucheck, its greater than 200. Labs are ordered. an ABG does show patient oxygen saturation is 89% on RA. She is placed on 2L NC, now at 95%. Currently labs hgb 9.7, D-Dimer 1.14, BUN 49, CR 6.7, BNP 5188. CXR that was done yesterday showed no acute findings. CXR has been ordered now again. Due to patient sudden onset of shortness of breath, "diaphragm" pain, hypoxia 85% oxygen just earlier, now 89% RA ABG, and hospitalization. I gave her a Wells Score due to PE being a possible differential diagnosis due to her sudden onset of hypoxia, shortness of breath, and pain. I would like to do a CTA of the chest. However, patient is on peritoneal dialysis, not hemodialysis. I can not hemodialysis here in [place]. Other possible dx include fluid overload, pneumonia. In regards to her headache and weakness. It is not unilateral headache or weakness. Neurologically she is intact. Her stroke score is 0 and her GCS is 15. I called [facility] and spoke to nephrology Dr. Chavez about this patient changes in presentation. He reports to send the patient. He reports that they will CT scan the patient there if needed, no scan here to delay care. No further orders for this patient. I then spoke to Dr. Sepulveda hospitalist who has accepted the patient. Will transfer to [facility]. Risk vs benefits of transfer explained to the patient and she has accepted the transfer. The risk of transfer are cardiac arrest, mvc, , worsening of shortness of breath, fluid overload, PE, OR. The benefits of transfer are higher level of care, mini bar attendant, CT ability with hemodialysis to follow. The benefit of staying in [place] is close to home. The risk of staying in [place] is inability to ct scan due to no hemodialysis capabilities, , worsening of condition. 03/06/21 1835 CXR was performed. There is possible new early infiltrates bilateral lower lobes. Patient is currently getting Rocephin 2g IV. Patient reports she would still like to be transferred where her mini bar attendant is located. Will continue with transfer. - Discharge Data Discharge Date: 03/06/21 Discharge Disposition: DC/Tfer to Acute Hospital 02 Condition: Fair - Referral to Home Health Primary Care Physician: Pillo Melo MD - Discharge Plan *PRESCRIPTION DRUG MONITORING PROGRAM REVIEWED*: Not Applicable *COPY OF PRESCRIPTION DRUG MONITORING REPORT IN PATIENT HALIMA: Not Applicable Home Medications: Home Meds DULoxetine [Cymbalta] 60 mg PO DAILY 09/19/17 [History] Gemfibrozil 600 mg PO BIDMEALS 09/19/17 [History] Sertraline HCl 50 mg PO DAILY 09/19/17 [History] Simvastatin 20 mg PO BEDTIME 09/19/17 [History] nitrofurantoin macrocrystaL [Macrodantin] 50 mg PO DAILY 09/19/17 [History] Multivitamin [Daily Nolan] 1 tab PO DAILY 10/11/17 [History] amLODIPine Besylate [Amlodipine Besylate] 5 mg PO DAILY 05/01/18 [History] Bumetanide 6 mg PO DAILY 03/05/21 [History] Calcium Acetate 1 tab PO TIDMEALS 03/05/21 [History] Cetirizine [ZyrTEC] 10 mg PO DAILY PRN 03/05/21 [History] Insulin Glargine,Hum.Rec.Anlog [Basaglar Kwikpen U-100] 50 units SUBCUT BEDTIME 03/05/21 [History] Ipratropium/Albuterol Sulfate [Iprat-Albut 0.5-3(2.5) MG/3 ML] 1 vial INH QID PRN 03/05/21 [History] Lactulose [Chronulac] 15 ml PO Q2D 03/05/21 [History] Meclizine HCl 25 mg PO Q4H PRN 03/05/21 [History] Metoprolol Succinate 75 mg PO DAILY 03/05/21 [History] SitaGLIPtin [Januvia] 50 mg PO DAILY 03/05/21 [History] calcitrioL [Calcitriol] 0.25 mcg PO MOTU@0800 03/05/21 [History] guaiFENesin [Mucinex] 1 tab PO Q12HR PRN 03/05/21 [History] lisinopriL [Lisinopril] 40 mg PO DAILY 03/05/21 [History] metOLazone [Metolazone] 4 tab PO WEEKLY 03/05/21 [History] Oxygen Therapy Mode: Nasal Cannula Oxygen Flow Rate (L/min): 2 - Discharge Summary/Plan Comment DC Time >30 min.: No - General Info Date of Service: 03/06/21 Functional Status: Reports: New Symptoms - Review of Systems General: Reports: Fever, Weakness, Fatigue, Malaise HEENT: Reports: No Symptoms Pulmonary: Reports: Shortness of Breath, Cough, Wheezing, Other ("diaphragm hurts"). Denies: Sputum Cardiovascular: Reports: Chest Pain, Dyspnea on Exertion, Lightheadedness Gastrointestinal: Reports: Nausea. Denies: Diarrhea, Vomiting Genitourinary: Reports: No Symptoms Musculoskeletal: Reports: No Symptoms Skin: Reports: No Symptoms Neurological: Reports: Headache. Denies: Numbness, Seizure, Syncope, Tingling, Change in Speech Psychiatric: Reports: No Symptoms - Patient Data Vitals - Most Recent: Last Vital Signs Temp 99.3 F 03/06/21 17:37 Pulse 86 03/06/21 16:00 Resp 18 03/06/21 16:00 BP 132/64 03/06/21 16:00 Pulse Ox 95 03/06/21 17:37 Weight - Most Recent: 205 lb 8 oz Lab Results - Last 24 hrs: Laboratory Results - last 24 hr 03/05/21 03/06/21 03/06/21 Range/Units 21:08 07:05 07:05 WBC 8.0 (4.0-11.0) 10^3/uL RBC 3.02 L (4.00-5.50) x10^6/uL Hgb 9.8 L (12.0-16.0) g/dL Hct 28.3 L (37.0-47.0) % MCV 93.7 (83.0-97.0) fL MCH 32.5 H (27.0-32.0) pg MCHC 34.6 (32.0-36.0) g/dL RDW Coeff of Francis 13.6 (11.0-15.0) % Plt Count 199 (150-400) 10^3/uL Immature Gran % (Auto) 0.7 (0.0-4.9) % Neut % (Auto) 69.1 (41-71) % Lymph % (Auto) 16.9 L (24-44) % [place] % (Auto) 10.5 H (0-10) % Eos % (Auto) 2.6 (0-6) % Baso % (Auto) 0.2 (0-1) % Neut # (Auto) 5.54 (1.80-8.00) x10^3/uL Lymph # (Auto) 1.36 (0.60-5.00) 10^3/uL [place] # (Auto) 0.84 (0.00-1.50) 10^3/uL Eos # (Auto) 0.21 (0.00-1.50) 10^3/uL Baso # (Auto) 0.02 (0.00-0.50) 10^3/uL Immature Gran # (Auto) 0.06 (0.00-0.49) 10^3/uL PT (9.7-12.3) SEC INR (0.92-1.18) APTT (23.2-32.3) SEC D-Dimer, Quantitative (0.00-0.50) ABG pH (7.35-7.45) ABG pCO2 (35-45) mm/Hg0 ABG pO2 (80-100) mm/Hg ABG HCO3 (22.0-26.0) mm/L ABG O2 Saturation (95-98) % ABG Base Excess (-2.0-3.0) O2 Delivery Device Sodium 137 (136-145) mEq/L Potassium 3.3 L D (3.5-5.0) mEq/L Chloride 97 L (98-106) mEq/L Carbon Dioxide 29 (21-32) mmol/L BUN 52 H (7-18) mg/dL Creatinine 5.4 H* (0.6-1.0) mg/dL Est Cr Clr Drug Dosing 8.75 mL/min Estimated GFR (MDRD) 8 L (>=60) mL/min Glucose 215 H (75-99) mg/dL POC Glucose 256 H (75-105) mg/dL Lactic Acid (0.4-2.0) mmol/L Calcium 8.6 (8.4-10.1) mg/dL Lactate Dehydrogenase (100-190) U/L Creatine Kinase (21-215) U/L Troponin I (0.00-0.06) ng/mL C-Reactive Protein 32.2 H (0.2-0.8) mg/dL NT-Pro-B Natriuret Pep (0-1000) pg/mL 03/06/21 03/06/21 03/06/21 Range/Units 11:35 16:01 16:20 WBC (4.0-11.0) 10^3/uL RBC (4.00-5.50) x10^6/uL Hgb (12.0-16.0) g/dL Hct (37.0-47.0) % MCV (83.0-97.0) fL MCH (27.0-32.0) pg MCHC (32.0-36.0) g/dL RDW Coeff of Francis (11.0-15.0) % Plt Count (150-400) 10^3/uL Immature Gran % (Auto) (0.0-4.9) % Neut % (Auto) (41-71) % Lymph % (Auto) (24-44) % [place] % (Auto) (0-10) % Eos % (Auto) (0-6) % Baso % (Auto) (0-1) % Neut # (Auto) (1.80-8.00) x10^3/uL Lymph # (Auto) (0.60-5.00) 10^3/uL [place] # (Auto) (0.00-1.50) 10^3/uL Eos # (Auto) (0.00-1.50) 10^3/uL Baso # (Auto) (0.00-0.50) 10^3/uL Immature Gran # (Auto) (0.00-0.49) 10^3/uL PT 11.0 (9.7-12.3) SEC INR 1.01 (0.92-1.18) APTT 26.7 (23.2-32.3) SEC D-Dimer, Quantitative (0.00-0.50) ABG pH (7.35-7.45) ABG pCO2 (35-45) mm/Hg0 ABG pO2 (80-100) mm/Hg ABG HCO3 (22.0-26.0) mm/L ABG O2 Saturation (95-98) % ABG Base Excess (-2.0-3.0) O2 Delivery Device Sodium (136-145) mEq/L Potassium (3.5-5.0) mEq/L Chloride (98-106) mEq/L Carbon Dioxide (21-32) mmol/L BUN (7-18) mg/dL Creatinine (0.6-1.0) mg/dL Est Cr Clr Drug Dosing mL/min Estimated GFR (MDRD) (>=60) mL/min Glucose (75-99) mg/dL POC Glucose 227 H (75-105) mg/dL Lactic Acid (0.4-2.0) mmol/L Calcium (8.4-10.1) mg/dL Lactate Dehydrogenase 182 (100-190) U/L Creatine Kinase (21-215) U/L Troponin I (0.00-0.06) ng/mL C-Reactive Protein (0.2-0.8) mg/dL NT-Pro-B Natriuret Pep 5188 H (0-1000) pg/mL 03/06/21 03/06/21 03/06/21 Range/Units 16:20 16:20 16:20 WBC (4.0-11.0) 10^3/uL RBC (4.00-5.50) x10^6/uL Hgb (12.0-16.0) g/dL Hct (37.0-47.0) % MCV (83.0-97.0) fL MCH (27.0-32.0) pg MCHC (32.0-36.0) g/dL RDW Coeff of Francis (11.0-15.0) % Plt Count (150-400) 10^3/uL Immature Gran % (Auto) (0.0-4.9) % Neut % (Auto) (41-71) % Lymph % (Auto) (24-44) % [place] % (Auto) (0-10) % Eos % (Auto) (0-6) % Baso % (Auto) (0-1) % Neut # (Auto) (1.80-8.00) x10^3/uL Lymph # (Auto) (0.60-5.00) 10^3/uL [place] # (Auto) (0.00-1.50) 10^3/uL Eos # (Auto) (0.00-1.50) 10^3/uL Baso # (Auto) (0.00-0.50) 10^3/uL Immature Gran # (Auto) (0.00-0.49) 10^3/uL PT (9.7-12.3) SEC INR (0.92-1.18) APTT (23.2-32.3) SEC D-Dimer, Quantitative (0.00-0.50) ABG pH 7.46 H (7.35-7.45) ABG pCO2 34 L (35-45) mm/Hg0 ABG pO2 53 L (80-100) mm/Hg ABG HCO3 23.8 (22.0-26.0) mm/L ABG O2 Saturation 89 L (95-98) % ABG Base Excess 0.0 (-2.0-3.0) O2 Delivery Device Room air Sodium 135 L (136-145) mEq/L Potassium 3.5 (3.5-5.0) mEq/L Chloride 94 L (98-106) mEq/L Carbon Dioxide 29 (21-32) mmol/L BUN 49 H (7-18) mg/dL Creatinine 6.7 H* (0.6-1.0) mg/dL Est Cr Clr Drug Dosing 7.06 mL/min Estimated GFR (MDRD) 6 L (>=60) mL/min Glucose 253 H (75-99) mg/dL POC Glucose (75-105) mg/dL Lactic Acid 1.2 (0.4-2.0) mmol/L Calcium 8.5 (8.4-10.1) mg/dL Lactate Dehydrogenase (100-190) U/L Creatine Kinase 156 (21-215) U/L Troponin I < 0.017 (0.00-0.06) ng/mL C-Reactive Protein (0.2-0.8) mg/dL NT-Pro-B Natriuret Pep (0-1000) pg/mL 03/06/21 03/06/21 03/06/21 Range/Units 16:24 16:33 17:32 WBC 9.0 (4.0-11.0) 10^3/uL RBC 3.06 L (4.00-5.50) x10^6/uL Hgb 9.7 L (12.0-16.0) g/dL Hct 28.4 L (37.0-47.0) % MCV 92.8 (83.0-97.0) fL MCH 31.7 (27.0-32.0) pg MCHC 34.2 (32.0-36.0) g/dL RDW Coeff of Francis 13.6 (11.0-15.0) % Plt Count 183 (150-400) 10^3/uL Immature Gran % (Auto) 0.7 (0.0-4.9) % Neut % (Auto) 76.9 H (41-71) % Lymph % (Auto) 12.2 L (24-44) % [place] % (Auto) 8.2 (0-10) % Eos % (Auto) 1.7 (0-6) % Baso % (Auto) 0.3 (0-1) % Neut # (Auto) 6.90 (1.80-8.00) x10^3/uL Lymph # (Auto) 1.09 (0.60-5.00) 10^3/uL [place] # (Auto) 0.74 (0.00-1.50) 10^3/uL Eos # (Auto) 0.15 (0.00-1.50) 10^3/uL Baso # (Auto) 0.03 (0.00-0.50) 10^3/uL Immature Gran # (Auto) 0.06 (0.00-0.49) 10^3/uL PT (9.7-12.3) SEC INR (0.92-1.18) APTT (23.2-32.3) SEC D-Dimer, Quantitative 1.14 H (0.00-0.50) ABG pH (7.35-7.45) ABG pCO2 (35-45) mm/Hg0 ABG pO2 (80-100) mm/Hg ABG HCO3 (22.0-26.0) mm/L ABG O2 Saturation (95-98) % ABG Base Excess (-2.0-3.0) O2 Delivery Device Sodium (136-145) mEq/L Potassium (3.5-5.0) mEq/L Chloride (98-106) mEq/L Carbon Dioxide (21-32) mmol/L BUN (7-18) mg/dL Creatinine (0.6-1.0) mg/dL Est Cr Clr Drug Dosing mL/min Estimated GFR (MDRD) (>=60) mL/min Glucose (75-99) mg/dL POC Glucose 214 H (75-105) mg/dL Lactic Acid (0.4-2.0) mmol/L Calcium (8.4-10.1) mg/dL Lactate Dehydrogenase (100-190) U/L Creatine Kinase (21-215) U/L Troponin I (0.00-0.06) ng/mL C-Reactive Protein (0.2-0.8) mg/dL NT-Pro-B Natriuret Pep (0-1000) pg/mL GOGO Results - Last 24 hrs: Microbiology 03/05/21 14:53 Aerobic Blood Culture - Preliminary Blood - Venous - Lab Draw NO GROWTH AFTER 1 DAY Anaerobic Blood Culture - Preliminary NO GROWTH AFTER 1 DAY 03/05/21 14:53 Aerobic Blood Culture - Preliminary Blood - Venous NO GROWTH AFTER 1 DAY Anaerobic Blood Culture - Preliminary NO GROWTH AFTER 1 DAY 03/05/21 12:39 Urine Culture - Preliminary Urine, Voided Med Orders - Current: Current Medications Acetaminophen (Acetaminophen 325 Mg Tab) 650 mg PO Q4H PRN PRN Reason: Pain (Mild 1-3)/fever Last Admin: 03/06/21 16:03 Dose: 650 mg Documented by: Albuterol/Ipratropium (Albuterol/Ipratropium 3.0-0.5 Mg/3 Ml Neb Soln) 3 ml INH QID PRN PRN Reason: Shortness of Breath Last Admin: 03/06/21 12:11 Dose: 3 ml Documented by: Calcitriol (Calcitriol 0.25 Mcg Cap) 0.25 mcg PO MoTu@0800 [facility] Calcium Acetate (Calcium Acetate 667 Mg Cap Own Med) 1,334 mg PO TIDMEALS [facility] Last Admin: 03/06/21 17:33 Dose: 1,334 mg Documented by: Ceftriaxone Sodium (Ceftriaxone 2 Gm Vial) 2 gm IVPUSH Q24H [facility] Last Admin: 03/06/21 15:58 Dose: 2 gm Documented by: Gemfibrozil (Gemfibrozil 600 Mg Tab Ptom) 600 mg PO BID@0800,1200 [facility] Last Admin: 03/06/21 12:05 Dose: 600 mg Documented by: Heparin Sodium (Porcine) (Heparin Sodium 5,000 Units/Ml Vial) 5,000 units SUBCUT Q12H [facility] Last Admin: 03/06/21 07:34 Dose: 5,000 units Documented by: Insulin Glargine (Insulin Glarg,Human.Rec.Analog 100 Unit/Ml) 50 unit SUBCUT BEDTIME [facility] Last Admin: 03/05/21 21:09 Dose: 50 units Documented by: Loratadine (Loratadine 10 Mg Tab) 10 mg PO DAILY PRN PRN Reason: Allergies Multivitamins/Minerals/Vitamin C (Multivitamin Tab) 1 tab PO DAILY [facility] Last Admin: 03/06/21 07:33 Dose: 1 tab Documented by: Amlodipine Besylate (5 Mg Tablet Ptom) 5 mg PO DAILY [facility] Last Admin: 03/06/21 07:37 Dose: 5 mg Documented by: Duloxetine [Cymbalta (] 60 Mg Cap Ptom) 60 mg PO DAILY [facility] Last Admin: 03/06/21 07:37 Dose: 60 mg Documented by: Lisinopril 40 Mg (Tablet Ptom) 40 mg PO DAILY [facility] Last Admin: 03/06/21 07:37 Dose: 40 mg Documented by: Metoprolol Succinate 50 Mg Tab.Er. Ptom 75 mg PO DAILY@0800 [facility] Last Admin: 03/06/21 07:39 Dose: 75 mg Documented by: Sertraline Hcl 50 Mg (Tablet Ptom) 50 mg PO BEDTIME [facility] Last Admin: 03/05/21 19:57 Dose: 50 mg Documented by: Metoprolol Succinate 50 Mg Tab.Er. Ptom 50 mg PO QPM [facility] Last Admin: 03/05/21 19:58 Dose: 50 mg Documented by: Sitagliptin 50mg Tab (Ptom) 50 mg PO DAILY [facility] Last Admin: 03/06/21 07:36 Dose: 50 mg Documented by: Ondansetron HCl (Ondansetron 4 Mg Tab.Dis) 8 mg PO Q4H PRN PRN Reason: nausea, able to take PO Pantoprazole Sodium (Pantoprazole 40 Mg Vial) 40 mg IVPUSH Q12H [facility] Last Admin: 03/06/21 07:33 Dose: 40 mg Documented by: Bumetanide 2mg Tabs 6mg/Dose Own Med 0 each PO DAILY [facility] Last Admin: 03/06/21 07:35 Dose: 1 each Documented by: Bumetanide 2mg Tab 4mg/Dose Own Med* * 0 each PO QPM [facility] Lactulose 10 Gm/15ml 473ml Bottle * *Own Med 0 each PO DAILY PRN PRN Reason: Constipation Sevelamer 800 Mg Tab (*Pt Own Med*) 0 each PO TIDMEALS [facility] Last Admin: 03/06/21 17:33 Dose: 1 each Documented by: Metolazone 5 Mg Tab (*Pt Own Med*) 0 each PO MoTuWeTh@0800 [facility] Simvastatin (Simvastatin 20 Mg Tab Ptom) 20 mg PO BEDTIME [facility] Last Admin: 03/05/21 19:59 Dose: 20 mg Documented by: Sodium Chloride (Sodium Chloride 0.9% 10 Ml Syringe) 10 ml FLUSH ASDIRECTED PRN PRN Reason: Keep Vein Open Discontinued Medications Bumetanide (Bumetanide 1 Mg Tab) 6 mg PO DAILY [facility] Bumetanide (Bumetanide 1 Mg Tab) 4 mg PO QPM [facility] Last Admin: 03/05/21 21:18 Dose: Not Given Documented by: Calcium Acetate (Calcium Acetate 667 Mg Cap) 1,334 mg PO TIDMEALS [facility] Last Admin: 03/05/21 17:54 Dose: 1,334 mg Documented by: Lactulose (Lactulose Soln 10 Gm/15 Ml 30 Ml Ud Cup) 10 gm PO DAILY PRN PRN Reason: Constipation - Exam Quality Assessment: Reports: Supplemental Oxygen (placed on 2L NC. ABG 89% RA.) General: Reports: Alert, Oriented, Cooperative, Mild Distress Neck: Reports: Supple, Trachea Midline, No JVD, No Thyromegaly Lungs: Reports: Clear to Auscultation, Normal Respiratory Effort Cardiovascular: Reports: Regular Rate, Regular Rhythm GI/Abdominal Exam: Soft, Non-Tender, No Organomegaly, No Abnormal Bruit (Female) Exam: Deferred Rectal (Female) Exam: Deferred Back Exam: Reports: Normal Inspection. Denies: CVA Tenderness (L), CVA Tenderness (R) Extremities: Normal Inspection, Normal Range of Motion, Non-Tender, No Pedal Edema, Normal Capillary Refill Skin: Reports: Warm, Dry, Intact Neurological: Reports: No New Focal Deficit, Normal Speech, Normal Tone, Strength Equal Bilateral, Sensation Intact, Cranial Nerves Intact Psy/Mental Status: Reports: Alert, Normal Affect, Normal Mood #1 Interpretation EKG Date: 03/06/21 Time: 16:10 Rhythm: NSR Rate (Beats/Min): 83 ST-T: Normal Comparison: NA - No Prior EKG
[2021-03-08] MEDS ORDERED: METOLAZONE 5 MG PO SCH (08:00)
[2021-03-08] MEDS ORDERED: Calcitriol 0.25 MCG Cap PO SCH (08:00)
[2021-03-08] MEDS ORDERED: Metolazone 5 MG Tab PO SCH (08:00)
== END 2021-03-06 20:30 ==
LOC: CC.MS 12:06 → CC.FCMC 12:06 → CC.MS 14:04
PROVIDERS: ADMIT Physician Assistant Medical; ATTEND Family Medicine
DX: N39.0 Urinary tract infection, site not specified (principal); R50.9 Fever, unspecified; E11.22 Type 2 diabetes mellitus with diabetic chronic kidney disease; N18.9 Chronic kidney disease, unspecified; J44.9 Chronic obstructive pulmonary disease, unspecified; E66.9 Obesity, unspecified; Z68.31 Body mass index [BMI] 31.0-31.9, adult; Z79.899 Other long term (current) drug therapy; Z79.4 Long term (current) use of insulin; Z20.822 Contact with and (suspected) exposure to COVID-19
CPT/HCPCS: 36415; 36600; 71045; 71046; 80048; 80053; 81001; 82550; 82803; 82947; 83605; 83615; 83880; 84484; 85025; 85379; 85610; 85730; 86140; 87040; 87086; 93005; 96372; 96374; 96375; 96376; A9270-GY; C9113; G0378; J0696; J1644; J1815-GY; J7620-GY; U0002

== ENCOUNTER 2021-03-21 06:57 | Inpatient (IN) | payer MEDICARE, BC ==
[2021-03-21] MEDS ORDERED: Aspirin 81 MG Tab.Chew PO ONE (07:04)
[2021-03-21 07:50] LABS: CHLORIDE,CL 96 mEq/L (98-106); SODIUM,NA 137 mEq/L (136-145)
[2021-03-21] MEDS ORDERED: D5 1/2 NS w/ 20 mEq/L KCl 1,000 ML IV SCH (08:00)
--- NOTE | 2021-03-21 08:17 | EDM.PDOC ---
ED HPI GENERAL MEDICAL PROBLEM - General Chief Complaint: Diabetic Complaint Stated Complaint: low blood sugar Time Seen by Provider: 03/21/21 07:39 Source of Information: Reports: Patient History Limitations: Reports: No Limitations - History of Present Illness INITIAL COMMENTS - FREE TEXT/NARRATIVE: Helena is a 75 year old female who presents to ER per EMS for low blood sugar, chest pain. Patient states she has not been feeling well for the last 3 days or so. Has pain across her upper chest and radiates to her neck. No shortness of breath. Has been nauseated, no appetite. admits that she hasn't been eating or drinking much over the last few days. Has been taking her insulin and Januvia. Last evening she only ate beef broth. Was up to the bathroom this am, was not feeling well, got very diaphoretic and when got up, fell to the floor and landed on her buttocks. EMS noted her blood sugar was 40 and was given glutose and root beer. Patient states she still feels very weak. Has intermittent chest discomfort. Blood sugar here 67 and apple juice was given. Patient has past history of CKD, does peritoneal dialysis overnight at home. Was recently transferred to [place] by Ricardo Savage for pneumonia. Has been home now for 10 days. Was doing well until 3 days ago again. Relates history of SANDER. Has gotten intermittent iron infusions in the past. Has had to take phosphate binders as well due to hyperphosphatemia. Type 2 Diabetes on insulin. Onset: Gradual Duration: Day(s):, Getting Worse Location: Reports: Chest, Generalized Quality: Reports: Ache Severity: Moderate Associated Symptoms: Reports: Chest Pain, Loss of Appetite, Malaise, Nausea/Vomiting, Weakness. Denies: Confusion, Fever/Chills, Shortness of Breath Chest Pain Score (Numeric/FACES): 7 - Related Data Allergies Allergy/AdvReac Type Severity Reaction Status Date / Time ciprofloxacin [From Cipro] Allergy Swelling Verified 03/21/21 07:00 Home Meds: Home Meds DULoxetine [Cymbalta] 60 mg PO DAILY 09/19/17 [History] Gemfibrozil 600 mg PO BIDMEALS 09/19/17 [History] Sertraline HCl 50 mg PO DAILY 09/19/17 [History] Simvastatin 20 mg PO BEDTIME 09/19/17 [History] nitrofurantoin macrocrystaL [Macrodantin] 50 mg PO DAILY 09/19/17 [History] Multivitamin [Daily Nolan] 1 tab PO DAILY 10/11/17 [History] amLODIPine Besylate [Amlodipine Besylate] 5 mg PO DAILY 05/01/18 [History] Bumetanide 6 mg PO DAILY 03/05/21 [History] Calcium Acetate 1 tab PO TIDMEALS 03/05/21 [History] Cetirizine [ZyrTEC] 10 mg PO DAILY PRN 03/05/21 [History] Insulin Glargine,Hum.Rec.Anlog [Basaglar Kwikpen U-100] 50 units SUBCUT BEDTIME 03/05/21 [History] Ipratropium/Albuterol Sulfate [Iprat-Albut 0.5-3(2.5) MG/3 ML] 1 vial INH QID PRN 03/05/21 [History] Lactulose [Chronulac] 15 ml PO Q2D 03/05/21 [History] Meclizine HCl 25 mg PO Q4H PRN 03/05/21 [History] Metoprolol Succinate 75 mg PO DAILY 03/05/21 [History] SitaGLIPtin [Januvia] 50 mg PO DAILY 03/05/21 [History] calcitrioL [Calcitriol] 0.25 mcg PO MOTU@0800 03/05/21 [History] guaiFENesin [Mucinex] 1 tab PO Q12HR PRN 03/05/21 [History] lisinopriL [Lisinopril] 40 mg PO DAILY 03/05/21 [History] metOLazone [Metolazone] 4 tab PO WEEKLY 03/05/21 [History] Past Medical History HEENT History: Reports: Cataract Cardiovascular History: Reports: Heart Murmur, High Cholesterol, Hypertension Respiratory History: Reports: Bronchitis, Recurrent, COPD, Pneumonia, Recurrent, Sleep Apnea Gastrointestinal History: Reports: None Genitourinary History: Reports: Dialysis, Peritoneal, UTI, Recurrent Musculoskeletal History: Reports: Fracture, Other (See Below) Other Musculoskeletal History: charcot syndrome of R foot Psychiatric History: Reports: Depression Endocrine/Metabolic History: Reports: Diabetes, Type II Hematologic History: Reports: Anemia, Blood Transfusion(s), Iron Deficiency Dermatologic History: Reports: Other (See Below) Other Dermatologic History: impetigo - Past Surgical History HEENT Surgical History: Reports: Cataract Surgery, LASIK, Tonsillectomy Respiratory Surgical History: Reports: None GI Surgical History: Reports: Colon, Polypectomy, Other (See Below) Other GI Surgeries/Procedures: colonectomy of large colon Female Surgical History: Reports: Hysterectomy Endocrine Surgical History: Reports: None Musculoskeletal Surgical History: Reports: None Dermatological Surgical History: Reports: None Social & Family History - Family History Family Medical History: No Pertinent Family History - Tobacco Use Tobacco Use Status *Q: Never Tobacco User - Caffeine Use Caffeine Use: Reports: Coffee - Recreational Drug Use Recreational Drug Use: No ED ROS GENERAL - Review of Systems Review Of Systems: See Below Constitutional: Reports: Malaise, Weakness, Fatigue, Decreased Appetite. Denies: Fever, Chills HEENT: Denies: Ear Pain, Sinus Problem, Throat Pain, Vertigo, Vision Change Respiratory: Denies: Shortness of Breath, Cough Cardiovascular: Reports: Chest Pain, Edema, Lightheadedness Endocrine: Reports: Fatigue GI/Abdominal: Reports: Nausea. Denies: Abdominal Pain, Black Stool, Bloody Stool, Constipation, Diarrhea, Vomiting : Reports: Other (voids a scant amount, on peritoneal dialysis) Musculoskeletal: Reports: No Symptoms Skin: Reports: Pallor Neurological: Reports: Weakness Psychiatric: Reports: No Symptoms ED EXAM GENERAL NO PERIP PULSE - Physical Exam Exam: See Below Exam Limited By: No Limitations General Appearance: Alert, WD/WN, No Apparent Distress Ears: Normal External Exam, Normal TMs Nose: Normal Inspection, Normal Mucosa, No Blood Throat/Mouth: Normal Inspection, Normal Oropharynx Head: Normocephalic Neck: Normal Inspection, Supple, Non-Tender Respiratory/Chest: No Respiratory Distress, Lungs Clear, Normal Breath Sounds Cardiovascular: Regular Rate, Rhythm GI/Abdominal: Normal Bowel Sounds, Soft, Non-Tender, Other (peritoneal catheter present) Extremities: Normal Inspection, Pedal Edema (1+) Neurological: Alert, Oriented Skin Exam: Warm, Dry, Pallor Course - Vital Signs Last Recorded V/S: Last Vital Signs Temp 97.2 F 03/21/21 07:23 Pulse 67 03/21/21 07:23 Resp 16 03/21/21 07:23 BP 109/53 L 03/21/21 07:23 Pulse Ox 96 03/21/21 07:23 - Orders/Labs/Meds Orders: Active Orders 24 hr Category Date Time Status Chest 2V [CR] Stat Exams 03/21/21 07:02 Taken COMPREHENSIVE METABOLIC PN,CMP [CHEM] Stat Lab 03/21/21 07:02 Results CREATINE KINASE,CK [CHEM] Stat Lab 03/21/21 07:02 Results FOLIC ACID [CHEM] Stat Lab 03/21/21 07:02 Results IRON PNL (FE, TIBC, BETH, %SAT) [REF] Stat Lab 03/21/21 07:59 Received LACTATE DEHYDROGENASE,LDH [CHEM] Stat Lab 03/21/21 07:02 Results LIPASE [CHEM] Stat Lab 03/21/21 07:02 Results MAGNESIUM [CHEM] Stat Lab 03/21/21 07:02 Results TROPONIN I [CHEM] Stat Lab 03/21/21 07:02 Results VITAMIN B12 [CHEM] Stat Lab 03/21/21 07:02 Results D5 1/2 NS w/ 20 mEq/L KCl 1,000 ml Med 03/21/21 08:00 Active IV ASDIRECTED Medication Orders Potassium Chloride/Dextrose/Sod Cl (D5 1/2 Ns W/ 20 Meq/L Kcl) 1,000 mls @ 125 mls/hr IV ASDIRECTED LYNNE Labs: Laboratory Tests 03/21/21 03/21/21 03/21/21 Range/Units 07:02 07:02 07:02 WBC 11.5 H (4.0-11.0) 10^3/uL RBC 2.59 L (4.00-5.50) x10^6/uL Hgb 8.2 L (12.0-16.0) g/dL Hct 24.1 L (37.0-47.0) % MCV 93.1 (83.0-97.0) fL MCH 31.7 (27.0-32.0) pg MCHC 34.0 (32.0-36.0) g/dL RDW Coeff of Francis 13.5 (11.0-15.0) % Plt Count 315 (150-400) 10^3/uL Immature Gran % (Auto) 1.4 (0.0-4.9) % Neut % (Auto) 83.3 H (41-71) % Lymph % (Auto) 8.6 L (24-44) % [place]yenne % (Auto) 5.6 (0-10) % Eos % (Auto) 1.0 (0-6) % Baso % (Auto) 0.1 (0-1) % Neut # (Auto) 9.60 H (1.80-8.00) x10^3/uL Lymph # (Auto) 0.99 (0.60-5.00) 10^3/uL [place] # (Auto) 0.65 (0.00-1.50) 10^3/uL Eos # (Auto) 0.11 (0.00-1.50) 10^3/uL Baso # (Auto) 0.01 (0.00-0.50) 10^3/uL Immature Gran # (Auto) 0.16 (0.00-0.49) 10^3/uL PT 11.8 (9.7-12.3) SEC INR 1.09 (0.92-1.18) APTT 27.0 (23.2-32.3) SEC Sodium 137 (136-145) mEq/L Potassium 2.8 L* (3.5-5.0) mEq/L Chloride 96 L (98-106) mEq/L Carbon Dioxide 27 (21-32) mmol/L BUN 63 H (7-18) mg/dL Creatinine 5.9 H* (0.6-1.0) mg/dL Est Cr Clr Drug Dosing 8.01 mL/min Estimated GFR (MDRD) 7 L (>=60) mL/min Glucose 75 D (75-99) mg/dL Calcium 8.3 L (8.4-10.1) mg/dL Magnesium 2.1 (1.8-2.4) mg/dL Total Bilirubin 0.4 (0.0-1.0) mg/dL AST 8 L (15-37) U/L ALT 9 L (12-78) U/L Alkaline Phosphatase 82 (46-116) U/L Lactate Dehydrogenase 204 H (100-190) U/L Creatine Kinase 15 L (21-215) U/L Troponin I < 0.017 (0.00-0.06) ng/mL Total Protein 7.3 (6.4-8.2) g/dL Albumin 2.2 L (3.4-5.0) g/dL Lipase 72 L (73-393) U/L Meds: Medications Generic Name Dose Route Start Last Admin Trade Name Indio PRN Reason Stop Dose Admin Potassium Chloride/Dextrose/Sod Cl 1,000 mls @ 125 mls/hr 03/21/21 08:00 D5 1/2 Ns W/ 20 Meq/L Kcl IV ASDIRECTED LYNNE Discontinued Medications Generic Name Dose Route Start Last Admin Trade Name Indio PRN Reason Stop Dose Admin Aspirin 324 mg 03/21/21 07:04 Aspirin 81 Mg Tab.Chew PO 03/21/21 07:05 ONETIME ONE - Re-Assessments/Exams Free Text/Narrative Re-Assessment/Exam: 03/21/21 08:20 Repeat blood sugars still in 60s, was given glass of apple juice, D51/2 NS with 20 meq KCL started as potassium also low at 2.8. Hemoglobin low at 8.2, down a gram since having labs 3 days ago. WBC is mildly elevated at 11.5, down from 16.5 on the 12th. Troponin is normal. Will admit to inpatient, further lab studies. Departure - Departure Time of Disposition: 08:44 Disposition: Admitted As Inpatient 66 Clinical Impression: Hypoglycemia, Hypokalemia, Anemia, Weakness, CKD (chronic kidney disease) stage 5, GFR less than 15 ml/min, Chest pain - Discharge Information *PRESCRIPTION DRUG MONITORING PROGRAM REVIEWED*: No *COPY OF PRESCRIPTION DRUG MONITORING REPORT IN PATIENT HALIMA: No Sepsis Event Note (ED) - Focused Exam Vital Signs: Vital Signs Temp Pulse Resp BP Pulse Ox 03/21/21 07:23 97.2 F 67 16 109/53 L 96 - Problem List & Annotations (1) Anemia SNOMED Code(s): 887967941 Code(s): D64.9 - ANEMIA, UNSPECIFIED Status: Acute Current Visit: Yes (2) Hypoglycemia SNOMED Code(s): 065420933 Code(s): E16.2 - HYPOGLYCEMIA, UNSPECIFIED Status: Acute Current Visit: Yes (3) Hypokalemia SNOMED Code(s): 60324534 Code(s): E87.6 - HYPOKALEMIA Status: Acute Current Visit: Yes (4) Weakness SNOMED Code(s): 71752496 Code(s): R53.1 - WEAKNESS Status: Acute Current Visit: Yes (5) CKD (chronic kidney disease) stage 5, GFR less than 15 ml/min SNOMED Code(s): 413468534 Code(s): N18.5 - CHRONIC KIDNEY DISEASE, STAGE 5 Status: Acute Current Visit: Yes (6) Chest pain SNOMED Code(s): 76100792 Code(s): R07.9 - CHEST PAIN, UNSPECIFIED Status: Acute Current Visit: Yes - Problem List Review Problem List Initiated/Reviewed/Updated: Yes - My Orders Last 24 Hours: My Active Orders 03/21/21 07:02 Chest 2V [CR] Stat COMPREHENSIVE METABOLIC PN,CMP [CHEM] Stat CREATINE KINASE,CK [CHEM] Stat FOLIC ACID [CHEM] Stat LACTATE DEHYDROGENASE,LDH [CHEM] Stat LIPASE [CHEM] Stat MAGNESIUM [CHEM] Stat TROPONIN I [CHEM] Stat VITAMIN B12 [CHEM] Stat 03/21/21 07:59 IRON PNL (FE, TIBC, BETH, %SAT) [REF] Stat 03/21/21 08:00 D5 1/2 NS w/ 20 mEq/L KCl 1,000 ml IV ASDIRECTED - Assessment/Plan Admission H&P: Please use this note as an admission H&P Last 24 Hours: My Active Orders 03/21/21 07:02 Chest 2V [CR] Stat COMPREHENSIVE METABOLIC PN,CMP [CHEM] Stat CREATINE KINASE,CK [CHEM] Stat FOLIC ACID [CHEM] Stat LACTATE DEHYDROGENASE,LDH [CHEM] Stat LIPASE [CHEM] Stat MAGNESIUM [CHEM] Stat TROPONIN I [CHEM] Stat VITAMIN B12 [CHEM] Stat 03/21/21 07:59 IRON PNL (FE, TIBC, BETH, %SAT) [REF] Stat 03/21/21 08:00 D5 1/2 NS w/ 20 mEq/L KCl 1,000 ml IV ASDIRECTED Assessment:: Weakness Chest Pain Anemia Hypoglycemia Hypokalemia CKD Plan: Admit inpatient for weakness, chest pain, anemia, hypokalemia, hypoglycemia, CKD. Start IV fluids, glucoscans QID. Replace potassium. Repeat cardiac enzymes. obtain iron studies, folic acid and B12. continue peritoneal dialysis.
[2021-03-21] MEDS ORDERED: Loratadine 10 MG Tab PO PRN (09:03)
[2021-03-21] MEDS ORDERED: GUAIFENESIN 600 MG PO PRN (09:03)
[2021-03-21] MEDS ORDERED: Meclizine 12.5 MG Tab PO PRN (09:03)
[2021-03-21] MEDS ORDERED: Albuterol/Ipratropium 3.0-0.5 MG/3 ML Neb Soln INH PRN (09:03)
[2021-03-21] MEDS ORDERED: D5 1/2 NS w/ 20 mEq/L KCl 1,000 ML IV ONE (09:07)
[2021-03-21] MEDS ORDERED: Sodium Chloride 0.9% 10 ML Syringe FLUSH PRN (09:10)
[2021-03-21] MEDS ORDERED: Ondansetron 4 MG Tab.DIS PO PRN (09:10)
[2021-03-21] MEDS ORDERED: Ondansetron 4 MG/2 ML SDV IV PRN (09:10)
[2021-03-21] MEDS ORDERED: Potassium Chloride Riders 40 MEQ in Premix Bag 1 BAG IV ONE (09:10)
[2021-03-21] MEDS ORDERED: Bumetanide 1 MG Tab PO SCH (09:15)
[2021-03-21] MEDS ORDERED: Metoprolol Succinate 25 MG Tab.ER PO SCH (09:15)
[2021-03-21] MEDS ORDERED: Metolazone 5 MG Tab PO SCH (09:15)
[2021-03-21] MEDS ORDERED: Lactulose Soln 10 GM/15 ML 30 ML UD Cup PO SCH (09:15)
[2021-03-21] MEDS: DULoxetine 30 MG Cap PO SCH (10:03)
[2021-03-21] MEDS: Lisinopril 20 MG Tab PO SCH (10:03)
[2021-03-21] MEDS: Multivitamin Tab PO SCH (10:03)
[2021-03-21] MEDS: Pantoprazole 40 MG Vial IVPUSH SCH (10:04)
[2021-03-21] MEDS: amLODIPine 10 MG Tab PO SCH (10:04)
[2021-03-21] MEDS: Gemfibrozil 600 MG Tab PO SCH (11:57)
[2021-03-21] MEDS ORDERED: Calcium Acetate 667 MG Cap PO SCH (12:00)
[2021-03-21] MEDS ORDERED: Cyclobenzaprine 10 MG Tab PO PRN (16:22)
[2021-03-21] MEDS: Potassium Chloride 10 MEQ Tab.ER PO SCH (17:53)
[2021-03-21] MEDS: Calcium Acetate 667 MG Cap PO SCH (17:53)
[2021-03-21] MEDS: SEVELAMER HCL 800 MG PO SCH (17:54)
[2021-03-21] MEDS ORDERED: Metoprolol Succinate 100 MG Tab.ER PO SCH (20:00)
[2021-03-21] MEDS ORDERED: Insulin Glarg,Human.Rec.Analog 100 Unit/ML SUBCUT SCH (20:00)
[2021-03-21] MEDS: Simvastatin 20 MG Tab PO SCH (20:07)
[2021-03-21] MEDS: Enoxaparin 30 MG/0.3 ML Syringe SUBCUT SCH (20:07)
[2021-03-21] MEDS: Metoprolol Succinate 100 MG Tab.ER PO SCH (20:07)
[2021-03-21] MEDS: Sertraline 25 MG Tab PO SCH (20:07)
[2021-03-21] MEDS: Lactulose Soln 10 GM/15 ML 30 ML UD Cup PO SCH (20:08)
[2021-03-21] MEDS: Acetaminophen 325 MG Tab PO PRN (22:18)
[2021-03-22] MEDS: amLODIPine 10 MG Tab PO SCH (07:46)
[2021-03-22] MEDS: Gemfibrozil 600 MG Tab PO SCH ×2 (07:46→11:35)
[2021-03-22] MEDS: Potassium Chloride 10 MEQ Tab.ER PO SCH (07:47)
[2021-03-22] MEDS: Calcitriol 0.25 MCG Cap PO SCH (07:47)
[2021-03-22] MEDS: Multivitamin Tab PO SCH (07:47)
[2021-03-22] MEDS: Metoprolol Succinate 25 MG Tab.ER PO SCH (07:47)
[2021-03-22] MEDS: Calcium Acetate 667 MG Cap PO SCH ×3 (07:48→17:23)
[2021-03-22] MEDS: DULoxetine 30 MG Cap PO SCH (07:48)
[2021-03-22] MEDS: BUMETANIDE 2 MG PO SCH (07:49)
[2021-03-22] MEDS: Lisinopril 20 MG Tab PO SCH (07:49)
[2021-03-22] MEDS: SEVELAMER HCL 800 MG PO SCH ×3 (07:51→17:25)
[2021-03-22] MEDS ORDERED: 50% Dextrose in Water 50 ML Syringe IVPUSH PRN (09:45)
[2021-03-22] MEDS ORDERED: Glucagon,Human Recombinant 1 MG Vial IM PRN (09:45)
[2021-03-22] MEDS: NITROFURANTOIN MACROCRYSTAL 50 MG PO SCH (10:02)
[2021-03-22] MEDS: Pantoprazole 40 MG Vial IVPUSH SCH (10:02)
--- NOTE | 2021-03-22 11:20 | PN ---
DATE: 03/22/2021 S: Helena was admitted yesterday by Flores for hypoglycemia and hypokalemia. She came in weak and lethargic. She maintains she was running some fevers at home, just was not eating, but had taken her insulin anyway. When she called the ambulance, her blood sugar was around 40, since been improved. She had IV potassium and her levels are back up to normal as well. Today, she does feel better. She has concerns about her diet and lack of ability to control her blood sugars. O: GENERAL: When examined her today, she is pleasant, alert, cooperative. HEENT: Grossly benign. NECK: Supple. LUNGS: Sounds appear to be clear to both bases. CARDIAC: Tones are regular. ABDOMEN: Nontender. She has no peripheral edema. ASSESSMENT: 1. HYPOGLYCEMIA WITH A HISTORY OF TYPE 2 DIABETES, REQUIRING INSULIN, IMPROVED. 2. ANEMIA SECONDARY TO CHRONIC KIDNEY DISEASE. 3. STAGE 5 CHRONIC KIDNEY DISEASE. 4. HYPOKALEMIA, RESOLVED. 5. WEAKNESS, IMPROVED. P: We are going to decrease her Basaglar from 60 to 30. I had a long discussion with the patient about using Humalog with meals, and she is willing to do that. We will put her on a sliding scale for now. I am going to try to get a consult with Audelia to have a dietary and diabetes education. All in all, the patient does look better, and I suspect to be stable for discharge in the next day or two. MJP/MODL /[id number]
[2021-03-22] MEDS: Insulin Lispro 100 Units/ML 3 ML Vial SUBCUT SCH ×3 (11:36→21:03)
[2021-03-22] MEDS: Acetaminophen 325 MG Tab PO PRN (18:30)
[2021-03-22] MEDS: Lactulose Soln 10 GM/15 ML 30 ML UD Cup PO SCH (20:06)
[2021-03-22] MEDS: Enoxaparin 30 MG/0.3 ML Syringe SUBCUT SCH (20:06)
[2021-03-22] MEDS: Simvastatin 20 MG Tab PO SCH (20:07)
[2021-03-22] MEDS: Metoprolol Succinate 100 MG Tab.ER PO SCH (20:07)
[2021-03-22] MEDS: Sertraline 25 MG Tab PO SCH (20:08)
[2021-03-22] MEDS: Insulin Glarg,Human.Rec.Analog 100 Unit/ML SUBCUT SCH (21:01)
[2021-03-23] MEDS: Metoprolol Succinate 25 MG Tab.ER PO SCH (08:07)
[2021-03-23] MEDS: Calcium Acetate 667 MG Cap PO SCH ×3 (08:08→17:34)
[2021-03-23] MEDS: Lisinopril 20 MG Tab PO SCH (08:08)
[2021-03-23] MEDS: Potassium Chloride 10 MEQ Tab.ER PO SCH (08:08)
[2021-03-23] MEDS: DULoxetine 30 MG Cap PO SCH (08:08)
[2021-03-23] MEDS: Gemfibrozil 600 MG Tab PO SCH ×2 (08:09→12:06)
[2021-03-23] MEDS: Calcitriol 0.25 MCG Cap PO SCH (08:09)
[2021-03-23] MEDS: Multivitamin Tab PO SCH (08:09)
[2021-03-23] MEDS: amLODIPine 10 MG Tab PO SCH (08:09)
[2021-03-23] MEDS: BUMETANIDE 2 MG PO SCH (08:13)
[2021-03-23] MEDS: SEVELAMER HCL 800 MG PO SCH ×3 (08:14→17:35)
[2021-03-23] MEDS: NITROFURANTOIN MACROCRYSTAL 50 MG PO SCH (08:14)
[2021-03-23] MEDS: Insulin Lispro 100 Units/ML 3 ML Vial SUBCUT SCH ×4 (08:16→20:18)
[2021-03-23] MEDS: Pantoprazole 40 MG Vial IVPUSH SCH (10:17)
--- NOTE | 2021-03-23 11:05 | PN ---
DATE: 03/23/2021 S: Ms. Roy is doing much better. Her electrolyte abnormalities are improved. She has had no low blood sugars. We have lowered her long-acting dose and put her on a sliding scale, and she feels very comfortable with that and is excited to start doing that at home. She has not had any complaints of pain. She has had no fevers. Her blood pressures have been fine. O: GENERAL: She is pleasant and cooperative. NECK: Supple. Veins are flat. LUNGS: Clear throughout. CARDIAC: Tones are regular. ABDOMEN: Soft and nontender. ASSESSMENT: 1. HYPOGLYCEMIC EPISODE WITH HISTORY OF TYPE 2 DIABETES, REQUIRING INSULIN. 2. CHRONIC KIDNEY DISEASE, STAGE 5. 3. CHRONIC ANEMIA SECONDARY TO ABOVE. 4. HYPOKALEMIA, RESOLVED. 5. WEAKNESS, IMPROVED. P: We will have ongoing sliding scale today. Plan on discharge tomorrow with instructions for q.i.d. Accu-Cheks, etc. No other anticipated changes. SABIHA/MICHAEL /[id number]
[2021-03-23] MEDS: Sertraline 25 MG Tab PO SCH (20:09)
[2021-03-23] MEDS: Simvastatin 20 MG Tab PO SCH (20:10)
[2021-03-23] MEDS: Metoprolol Succinate 100 MG Tab.ER PO SCH (20:10)
[2021-03-23] MEDS: Enoxaparin 30 MG/0.3 ML Syringe SUBCUT SCH (20:12)
[2021-03-23] MEDS: Lactulose Soln 10 GM/15 ML 30 ML UD Cup PO SCH (20:12)
[2021-03-23] MEDS: Insulin Glarg,Human.Rec.Analog 100 Unit/ML SUBCUT SCH (20:14)
[2021-03-24] MEDS: Insulin Lispro 100 Units/ML 3 ML Vial SUBCUT SCH ×2 (07:46→11:48)
[2021-03-24] MEDS: BUMETANIDE 2 MG PO SCH (07:48)
[2021-03-24] MEDS: SEVELAMER HCL 800 MG PO SCH ×2 (07:49→11:47)
[2021-03-24] MEDS: Lisinopril 20 MG Tab PO SCH (07:50)
[2021-03-24] MEDS: DULoxetine 30 MG Cap PO SCH (07:51)
[2021-03-24] MEDS: Calcium Acetate 667 MG Cap PO SCH ×2 (07:51→11:47)
[2021-03-24] MEDS: amLODIPine 10 MG Tab PO SCH (07:52)
[2021-03-24] MEDS: Potassium Chloride 10 MEQ Tab.ER PO SCH (07:52)
[2021-03-24] MEDS: Metoprolol Succinate 25 MG Tab.ER PO SCH (07:52)
[2021-03-24] MEDS: Gemfibrozil 600 MG Tab PO SCH ×2 (07:52→11:47)
[2021-03-24] MEDS: Multivitamin Tab PO SCH (07:53)
[2021-03-24] MEDS: NITROFURANTOIN MACROCRYSTAL 50 MG PO SCH (08:40)
[2021-03-24] MEDS: Pantoprazole 40 MG Vial IVPUSH SCH (10:40)
--- NOTE | 2021-03-24 14:55 | DISCH ---
ADMISSION DIAGNOSES: 1. Weakness. 2. Hypoglycemia. 3. Hypokalemia. DISCHARGE DIAGNOSIS: 1. HYPOGLYCEMIA WITH TYPE 2 DIABETES, REQUIRING INSULIN. 2. HYPOKALEMIA, RESOLVED. 3. CHRONIC KIDNEY DISEASE STAGE 5, REQUIRING PERITONEAL DIALYSIS. 4. CHRONIC ANEMIA SECONDARY TO ABOVE. 5. WEAKNESS, IMPROVED. HISTORY: The patient presented with weakness, fatigue, and lethargy. She presented with an ambulance to her house with a blood sugar of 40. She was evaluated by Flores Bennett in our emergency room and had stable vital signs, but did have a low potassium. She was admitted for appropriate care. HOSPITAL COURSE: The patient was given IV potassium on arrival and her potassium immediately tuan to normal levels. She had glucagon prior to arrival and her blood sugars were never less than 100 while in our facility. Over the course of her acute care stay, we did cut back on her long-acting insulin and put her on sliding scale Humalog. We have talked to her about using Humalog with sliding scale before her meals and she is adjusting that nicely. We have lowered her dose of Basaglar from 60 to 30 and she is feeling very comfortable. We have put in a consult for the dietitian who did come meet with her and they are going to have a formal consultation next Monday. The patient is instructed on q.i.d. Accu-Cheks, use sliding scale and a scale is provided for her. She will use 5 units of Humalog with every meal and continue her 30 of Basaglar at night. Overall, she is feeling wonderful. Her vitals have been stable, and there has been no other complications. COMPLICATIONS: During her stay were none. CONSULTATIONS: Director [place]. DISPOSITION: Discharged home with instruction for 1-week followup with blood sugar log. SABIHA/MICHAEL /[id number]
== END 2021-03-24 17:37 | disposition home or self-care (01) | DRG 639 ==
LOC: CC.ED 06:57 → UNDOADMIN 08:00 → CC.MS 08:00
PROVIDERS: ADMIT Physician Assistant Medical; ATTEND Family Medicine
DX: R07.9 Chest pain, unspecified (principal); D64.9 Anemia, unspecified; R53.1 Weakness; E11.649 Type 2 diabetes mellitus with hypoglycemia without coma; E87.6 Hypokalemia; N18.5 Chronic kidney disease, stage 5; E11.22 Type 2 diabetes mellitus with diabetic chronic kidney disease; I12.0 Hypertensive chronic kidney disease with stage 5 chronic kidney disease or end stage renal disease; N18.6 End stage renal disease; D63.1 Anemia in chronic kidney disease; E78.00 Pure hypercholesterolemia, unspecified; E61.1 Iron deficiency; J44.9 Chronic obstructive pulmonary disease, unspecified; I12.9 Hypertensive chronic kidney disease with stage 1 through stage 4 chronic kidney disease, or unspecified chronic kidney disease; G47.30 Sleep apnea, unspecified; F32.9 Major depressive disorder, single episode, unspecified; D50.9 Iron deficiency anemia, unspecified; Z98.49 Cataract extraction status, unspecified eye; Z90.89 Acquired absence of other organs; Z87.01 Personal history of pneumonia (recurrent); Z88.1 Allergy status to other antibiotic agents; Z79.899 Other long term (current) drug therapy; Z79.4 Long term (current) use of insulin; Z87.440 Personal history of urinary (tract) infections; Z90.710 Acquired absence of both cervix and uterus; Z99.2 Dependence on renal dialysis
CPT/HCPCS: 36415; 71046; 80048; 80053; 82550; 82607; 82728; 82746; 82947; 83540; 83550; 83615; 83690; 83735; 84132; 84484; 84550; 85025; 85610; 85730; 93005; 93010; 96365; 97110-GP; 97161-GP; 99285-25; A9270-GY; C9113; J1650; J1815-GY; J3480

== ENCOUNTER 2021-08-12 14:34 | Emergency (ER) | payer MEDICARE, BC ==
[2021-08-12] MEDS: Ondansetron 4 MG Tab.DIS PO ONE (15:10)
--- NOTE | 2021-08-12 15:14 | EDM.PDOC ---
ED HPI GENERAL MEDICAL PROBLEM - General Chief Complaint: Gastrointestinal Problem Stated Complaint: COVID+/N/V Time Seen by Provider: 08/12/21 14:45 Source of Information: Reports: Patient - History of Present Illness INITIAL COMMENTS - FREE TEXT/NARRATIVE: Has COVID, received monoclonal antibodies, states has nausea. Denies any other acute problems today, wants something for nausea Onset: Gradual Onset Date: 08/11/21 Duration: Intermittent Location: Reports: Abdomen Improves with: Reports: None Generalized Pain Score (Numeric/FACES): 0 - Related Data Allergies Allergy/AdvReac Type Severity Reaction Status Date / Time ciprofloxacin [From Cipro] Allergy Swelling Verified 08/12/21 14:48 hydrocodone Allergy Facial Verified 08/12/21 14:48 Swelling Home Meds: Home Meds DULoxetine [Cymbalta] 60 mg PO DAILY 09/19/17 [History] Gemfibrozil 600 mg PO 0800,1200 09/19/17 [History] Sertraline HCl 50 mg PO BEDTIME 09/19/17 [History] Simvastatin 20 mg PO BEDTIME 09/19/17 [History] nitrofurantoin macrocrystaL [Macrodantin] 50 mg PO DAILY 09/19/17 [History] Bumetanide 6 mg PO DAILY 03/05/21 [History] Metoprolol Succinate 75 mg PO QAM 03/05/21 [History] SitaGLIPtin [Januvia] 50 mg PO DAILY 03/05/21 [History] calcitrioL [Calcitriol] 0.25 mcg PO MOTU@0800 03/05/21 [History] Metoprolol Succinate [Toprol Xl] 50 mg PO BEDTIME 03/21/21 [History] Insulin Glargine,Hum.Rec.Anlog [Basaglar Kwikpen U-100] 30 units SUBCUT BEDTIME #0 03/24/21 [Rx] Insulin Lispro [HumaLOG] 5 unit SUBCUT TID #1 vial 03/24/21 [Rx] Potassium Chloride [Klor-Con 10] 20 meq PO DAILY tab.er 03/24/21 [Rx] Acetaminophen 500 mg PO Q4HR PRN 06/22/21 [History] Past Medical History HEENT History: Reports: Cataract Cardiovascular History: Reports: Heart Murmur, High Cholesterol, Hypertension Respiratory History: Reports: Bronchitis, Recurrent, COPD, Pneumonia, Recurrent, Sleep Apnea Gastrointestinal History: Reports: None Genitourinary History: Reports: Dialysis, Peritoneal, UTI, Recurrent Musculoskeletal History: Reports: Fracture, Other (See Below) Other Musculoskeletal History: charcot syndrome of R foot Psychiatric History: Reports: Depression Endocrine/Metabolic History: Reports: Diabetes, Type II Hematologic History: Reports: Anemia, Blood Transfusion(s), Iron Deficiency Dermatologic History: Reports: Other (See Below) Other Dermatologic History: impetigo - Past Surgical History HEENT Surgical History: Reports: Cataract Surgery, LASIK, Tonsillectomy Respiratory Surgical History: Reports: None GI Surgical History: Reports: Colon, Polypectomy, Other (See Below) Other GI Surgeries/Procedures: colonectomy of large colon Female Surgical History: Reports: Hysterectomy Endocrine Surgical History: Reports: None Musculoskeletal Surgical History: Reports: None Dermatological Surgical History: Reports: None Social & Family History - Family History Family Medical History: No Pertinent Family History - Tobacco Use Tobacco Use Status *Q: Never Tobacco User Second Hand Smoke Exposure: Yes - Caffeine Use Caffeine Use: Reports: Coffee ED ROS GENERAL - Review of Systems Review Of Systems: See Below Constitutional: Reports: Malaise HEENT: Reports: No Symptoms Respiratory: Reports: Cough Cardiovascular: Reports: No Symptoms Endocrine: Reports: No Symptoms GI/Abdominal: Reports: Nausea : Reports: Other (peritoneal dialysis) Musculoskeletal: Reports: Other (Ortho boot right foot) Skin: Reports: No Symptoms Neurological: Reports: No Symptoms Psychiatric: Reports: No Symptoms Hematologic/Lymphatic: Reports: No Symptoms Immunologic: Reports: No Symptoms ED EXAM, GI/ABD - Physical Exam Exam: See Below Exam Limited By: No Limitations General Appearance: Alert, No Apparent Distress Eyes: Bilateral: EOMI Ears: Normal External Exam Nose: Normal Inspection, Normal Mucosa, No Blood Throat/Mouth: Normal Lips, Normal Voice, No Airway Compromise Head: Atraumatic, Normocephalic Neck: Normal Inspection, Supple, Non-Tender, Full Range of Motion Respiratory/Chest: No Respiratory Distress, Lungs Clear, Normal Breath Sounds, No Accessory Muscle Use, Chest Non-Tender Cardiovascular: Normal Peripheral Pulses, Regular Rate, Rhythm GI/Abdominal Exam: Normal Bowel Sounds, Soft, Non-Tender Back Exam: Normal Inspection, Full Range of Motion Extremities: Normal Capillary Refill, Other (RLE ortho boot) Neurological: Alert, Oriented, Normal Cognition Psychiatric: Normal Affect, Normal Mood Skin Exam: Warm, Dry, Intact, Normal Color, No Rash Lymphatic: No Adenopathy Course - Vital Signs Last Recorded V/S: Last Vital Signs Temp 97.2 F 08/12/21 14:40 Pulse 101 H 08/12/21 14:40 Resp 16 08/12/21 14:40 BP 118/63 08/12/21 14:40 Pulse Ox 99 08/12/21 14:40 - Orders/Labs/Meds Meds: Medications Discontinued Medications Generic Name Dose Route Start Last Admin Trade Name Indio PRN Reason Stop Dose Admin Ondansetron HCl 4 mg 08/12/21 15:05 Ondansetron 4 Mg Tab.Dis PO 08/12/21 15:06 ONETIME ONE - Re-Assessments/Exams Free Text/Narrative Re-Assessment/Exam: 08/12/21 15:13 Rx: ondansetron 4mg odt - one odt under tongue q 6 hrs prn nausea - #12, no refills Departure - Departure Time of Disposition: 15:15 (Waiting in ER for a ride) Disposition: Home, Self-Care 01 Condition: Good Clinical Impression: COVID-19, Nausea - Discharge Information Instructions: Nausea and Vomiting, Adult, [id number], COVID-19: What to Do If You Are Sick- CDC (10/21/2020) Additional Instructions: Take ondansetron as directed for nausea. Follow up with Primary Care Provider as needed. Sepsis Event Note (ED) - Evaluation Sepsis Screening Result: No Definite Risk - Focused Exam Vital Signs: Vital Signs Temp Pulse Resp BP Pulse Ox 08/12/21 14:40 97.2 F 101 H 16 118/63 99 - Problem List & Annotations (1) COVID-19 SNOMED Code(s): 590056597 Code(s): U07.1 - COVID-19 Status: Acute (2) Nausea SNOMED Code(s): 933941907 Code(s): R11.0 - NAUSEA Status: Acute - Problem List Review Problem List Initiated/Reviewed/Updated: Yes
== END 2021-08-12 15:15 | disposition home or self-care (01) ==
LOC: CC.ED 14:34
DX: U07.1 COVID-19 (principal); R11.0 Nausea; E78.00 Pure hypercholesterolemia, unspecified; I10 Essential (primary) hypertension; E11.9 Type 2 diabetes mellitus without complications; J44.9 Chronic obstructive pulmonary disease, unspecified; Z88.1 Allergy status to other antibiotic agents; Z88.5 Allergy status to narcotic agent; Z79.899 Other long term (current) drug therapy; Z79.4 Long term (current) use of insulin
CPT/HCPCS: 99283; A9270-GY

== ENCOUNTER 2021-11-22 17:15 | Emergency (ER) | payer MEDICARE, BC ==
[2021-11-22] MEDS ORDERED: cefTRIAXone 1 GM Vial IM ONE (18:30)
[2021-11-22] MEDS ORDERED: metroNIDAZOLE 500 MG Tab PO ONE (18:31)
== END 2021-11-22 19:05 | disposition home or self-care (01) ==
LOC: CC.ED 17:15
DX: R10.31 Right lower quadrant pain (principal); R19.7 Diarrhea, unspecified; D72.829 Elevated white blood cell count, unspecified; J44.9 Chronic obstructive pulmonary disease, unspecified; E11.9 Type 2 diabetes mellitus without complications; E78.00 Pure hypercholesterolemia, unspecified; I10 Essential (primary) hypertension; Z88.1 Allergy status to other antibiotic agents; Z79.899 Other long term (current) drug therapy; Z79.4 Long term (current) use of insulin
CPT/HCPCS: 36415; 80053; 85025; 96372; 99284; A9270-GY; J0696

== ENCOUNTER 2021-12-06 14:46 | Emergency (ER) | payer MEDICARE, BC ==
[2021-12-06 16:03] LABS: CHLORIDE,CL 99 mEq/L (98-106); SODIUM,NA 140 mEq/L (136-145)
[2021-12-06] MEDS ORDERED: Sodium Chloride 0.9% 500 ML IV SCH (18:15)
== END 2021-12-06 21:03 ==
LOC: CC.ED 14:46
DX: R53.1 Weakness (principal); R55 Syncope and collapse; R79.1 Abnormal coagulation profile; E78.00 Pure hypercholesterolemia, unspecified; I10 Essential (primary) hypertension; J44.9 Chronic obstructive pulmonary disease, unspecified; E11.9 Type 2 diabetes mellitus without complications; Z79.4 Long term (current) use of insulin; Z79.899 Other long term (current) drug therapy
CPT/HCPCS: 36415; 70450; 71046; 72125; 80053; 82550; 84484; 85025; 85379; 85610; 86140; 93005; 99284; 99284-25; J7040